=== PATIENT | male | born 1965 | race Caucasian/White ===

== ENCOUNTER 2017-11-04 16:21 | Emergency (ER) | payer OTHER, SELFPAY ==
[2017-11-04 16:22] VITALS: BP 146/97; PULSE 90; RESP 18; TEMP 36.7; O2SAT 98; BMI 29.0
[2017-11-04 16:40] VITALS: O2SAT 98
--- NOTE | 2017-11-04 16:44 | ED.DCSUM_ITS ---
- ER Visit Summary Date of Service: 11/04/17 Chief Complaint: [] Cough History of Present Illness: The patient is a 52 M [] complaining of 2 weeks of persistent cough resulting in sore abdominal muscles. Patient reports she was diagnosed with influenza and treated with steroids and Tessalon Perles by urgent care. Patient reports he is concerned of the persistent cough and intermittent fever and chills. Denies chest pain or shortness of breath. No other complaints at this time. Physical Examination: [] Afebrile, vital signs stable. 52-year-old male in no acute distress. Conversational. Cardiovascular exam is regular rate and rhythm. Lungs are clear to auscultation. Abdomen is soft and nontender. Test Results: [] Chest x-ray: Negative. Emergency Department Course and Treatment: [] Patient had normal vital signs and was conversational. His main concern was the persistent cough. He requested additional dextromethorafan syrup. He will be provided a prescription. He was encouraged to follow-up with his primary care physician. Treatment Plan: [] Follow-up with PCP. Disposition: [] Discharge, stable. Impression: [] URI This note was generated with [employer] dictation software. It may contain incorrect words, spelling, and punctuation that were not noted in review of the chart prior to signing ED Disposition - Plan for ED Patient: Chief Complaint: Cold Sx Referrals: Nereyda Coronel MD [Primary Care Provider] -
--- NOTE | 2017-11-04 17:00 | RAD_ITS ---
STUDY: X-RAY CHEST REASON FOR EXAM: Male, 52 years old. Cough and headache TECHNIQUE: PA and lateral views of the chest. COMPARISON: 11/08/2013 FINDINGS: The lungs are clear and expanded. There is no demonstrated pleural abnormality. Normal size heart. Normal mediastinum and jayro. Normal visualized pulmonary arteries. Normal visualized aortic arch and descending thoracic aorta. Normal visualized thoracic spine. Normal visualized ribs, clavicles, and shoulders. There is no demonstrated abnormality of the visualized soft tissue structures of the upper abdomen. RAD/Chest PA and Lateral IMPRESSION: Normal x-ray examination of the chest. Electronically Signed: Luis Armando Huang DO at 17:23 EST Tel , Service support ,
--- NOTE | 2017-11-04 17:46 | ED.DEP ---
ED Disposition - Plan for ED Patient: Disposition: Home or Assisted Living Chief Complaint: Cold Sx Instructions: ED Upper Resp Infec No Abx Tx Prescriptions: Dextromethorphn/Acetaminoph/Cp [Flu Hbp Tablet] 1 ea PO 4X/DAY PRN PRN #20 tab PRN Reason: Cough Referrals: Nereyda Coronel MD [Primary Care Provider] -
[2017-11-04 17:55] VITALS: BP 142/88; PULSE 98; RESP 18; O2SAT 98
--- NOTE | 2017-11-05 10:43 | ED.RN ---
Called RX to [facility] on [address], as requested by pt . Dextromethorphan Syrup 1 tsp TID PRN cough. #1 Bottle.
== END 2017-11-04 18:04 | disposition home or self-care (01) ==
PROVIDERS: Emergency Provider Emergency Medicine; Family Provider Internal Medicine; PCP Internal Medicine
DX: J06.9 Acute upper respiratory infection, unspecified (principal); K21.9 Gastro-esophageal reflux disease without esophagitis; F41.9 Anxiety disorder, unspecified; Z72.0 Tobacco use
CPT/HCPCS: 71046; 99283

== ENCOUNTER 2019-03-15 18:32 | Emergency (ER) | payer OTHER, SELFPAY ==
[2019-03-15 18:33] VITALS: BP 158/111; PULSE 88; RESP 16; TEMP 36.4; O2SAT 96; BMI 29.4
--- NOTE | 2019-03-15 18:51 | ED.DCSUM_ITS ---
- ER Visit Summary Date of Service: 03/15/19 Chief Complaint: Left hand laceration History of Present Illness: The patient is a 53 M who sustained a left hand laceration today. He was cutting with a razor knife when it cut into the ulnar portion of his left hand. He was able to control the bleeding. Last tetanus unknown. Denies any pain at this time. Physical Examination: Left hand exam has a 3 cm vertically oriented laceration on the ulnar portion. There is no bleeding. No foreign body. Test Results: None performed Emergency Department Course and Treatment: The wound was cleansed with alcohol. Dermabond was used to approximate the wound as it is not deep. His tetanus was updated. He will follow-up with Worker's Comp. Treatment Plan: [] Disposition: Discharge Impression: Left hand laceration, 3 cm Dermabond by ED physician This note was generated with [employer] dictation software. It may contain incorrect words, spelling, and punctuation that were not noted in review of the chart prior to signing ED Disposition - Plan for ED Patient: Referrals: Nereyda Coronel MD [Primary Care Provider] -
--- NOTE | 2019-03-15 18:52 | DCINST.ED_ITS ---
ED Disposition - Plan for ED Patient: Disposition: Home or Assisted Living Instructions: ED Laceration Ext Skin Glue Referrals: Nereyda Coronel MD [Primary Care Provider[facility] - [facility] [GROUP OF PHYSICIANS] -
[2019-03-15] MEDS: Diphth,Pertuss(Acell),Tet Vac 0.5 ML Vial IM (18:58)
[2019-03-15 19:47] VITALS: RESP 18
== END 2019-03-15 19:47 | disposition home or self-care (01) ==
LOC: ED 19:20
PROVIDERS: Emergency Provider Emergency Medicine; Family Provider Internal Medicine; PCP Internal Medicine
DX: S61.412A Laceration without foreign body of left hand, initial encounter (principal); W26.0XXA Contact with knife, initial encounter; Y93.9 Activity, unspecified; Y92.89 Other specified places as the place of occurrence of the external cause; Y99.8 Other external cause status; Z72.0 Tobacco use
CPT/HCPCS: 12002; 90471; 90715; 99282

== ENCOUNTER 2021-11-18 13:12 | Emergency (ER) | payer BC, SELFPAY ==
[2021-11-18 13:13] VITALS: BP 180/123; PULSE 97; RESP 16; TEMP 36.2; O2SAT 99; BMI 28.1
[2021-11-18] MEDS: 0.9% Normal Saline 1,000 ML 999 ML IV (14:20)
--- NOTE | 2021-11-18 14:21 | EX.ED.DYSGE1 ---
HPI <TRACI Ford - Last Filed: 11/18/21 16:37> History of Present Illness Chief Complaint: General Illness Narrative Narrative: 56-year-old male with PMH of HTN, HLD, GERD, anxiety and depression presents with nausea and vomiting. He states since October 22 he has had daily dry heaving or vomiting. Over the last week he has had significantly decreased p.o. intake. He also reports 3 episodes of nonbloody diarrhea a day but this is chronic. He has abdominal cramping but no severe pain. He attributed his symptoms to worsening anxiety so his primary care doctor increased his anxiety medications without improvement. He also drinks 2 tall boys a day with kathy and has had no change in his drinking pattern recently. Denies marijuana use. Previous abdominal surgeries include appendectomy. PFSH <TRACI Ford - Last Filed: 11/18/21 16:37> PFSH Home Medications multivitamin,[id number] [Therems-M] 1 tab PO DAILYCM #30 tablet 11/09/13 [Rx Last Taken 11/04/17] pantoprazole 20 mg PO BID #30 tablet 11/15/13 [Rx Last Taken 11/04/17] venlafaxine 75 mg PO DAILY 06/09/17 [History Last Taken 11/04/17] trazodone 50 mg PO QHS 03/15/19 [History Last Taken Unknown] ondansetron 4 mg PO Q8H PRN PRN #12 tab 11/18/21 [Rx Last Taken Unknown] Allergy/AdvReac Type Severity Reaction Status Date / Time No Known Allergies Allergy Verified 11/18/21 13:14 Social History Smoking Status: Never smoker ROS <TRACI Ford - Last Filed: 11/18/21 16:37> ROS ED ROS Narrative Constitutional: Negative for fever, chills, malaise. Eyes: Negative for visual change. ENT: Negative for sore throat, ear pain, rhinorrhea. CVS: Negative for palpitations, chest pain, syncope. Respiratory: Negative for shortness of breath, cough, orthopnea. GI: Positive for abdominal pain, nausea, vomiting, diarrhea. Negative for constipation, melena, hematochezia. : Negative for dysuria, hematuria or frequency. Neuro: Negative for headache, motor/sensory dysfunction. Skin: Negative for rash, abscess, or wound. Musc: Negative for joint pain, swelling, trauma. Heme: Negative for easy bruising, bleeding, lymphadenopathy. EXAM <TRACI Ford - Last Filed: 11/18/21 16:37> Physical Exam Narrative Exam Narrative: CONST: Patient sitting in no acute distress. EYES: Normal inspection. ENT: Normal inspection, dry mucous membranes. NECK: Normal inspection. RESP: No respiratory distress, CTAB. CVS: Regular rate and rhythm, no murmur, no gallop. ABD: Soft and nontender, no guarding or rebound, nondistended, no hepatosplenomegaly. Back: Normal inspection, no CVA tenderness. SKIN: Color normal, no rash, warm, dry, intact. EXTREMITIES: Normal appearance, no pedal edema. NEURO: Oriented x4. PSYCH: Normal affect. Const Vital Signs: 11/18/21 13:13 11/18/21 14:23 11/18/21 16:36 Temperature 97.2 F L Temperature Source Temporal Pulse Rate 97 84 Respiratory Rate 16 18 Respiratory Effort Normal Non-Labored Blood Pressure 180/123 H 148/99 H Blood Pressure Mean 142 Pulse Ox 99 Oxygen Delivery Method Room Air <Hayden Reed MD - Last Filed: 11/18/21 18:18> Physical Exam Const Vital Signs: 11/18/21 13:13 11/18/21 14:23 11/18/21 16:36 Temperature 97.2 F L Temperature Source Temporal Pulse Rate 97 84 Respiratory Rate 16 18 Respiratory Effort Normal Non-Labored Blood Pressure 180/123 H 148/99 H Blood Pressure Mean 142 Pulse Ox 99 Oxygen Delivery Method Room Air MDM <TRACI Ford - Last Filed: 11/18/21 16:37> [facility] Narrative Medical decision making narrative: Patient presents with few week history of nausea and vomiting. He appears well and nontoxic. Vital signs are within normal limits. On exam he has slightly dry mucous membranes. Heart is regular, lungs clear, and abdomen is soft, nontender, and nondistended with no hepatosplenomegaly. Labs show acute hepatitis with AST/ALT of 651/653 likely elevated from alcohol abuse. Total bilirubin is 1.5. Electrolytes, renal function, and lipase are all within normal limits. Urine has 5 ketones. His most recent blood work is from 2013 with liver enzymes in the 200-300s and total bilirubin was around 10 or higher. He has clinical improvement after IVF and zofran and is tolerating p.o. intake. He does not want to come in for alcohol detox. He had expressed that his anxiety has kept him in bed over the last month so he was evaluated by social work. He was offered alcohol detox resources and states he does not want to be admitted. He is established with his primary care who is referred him to a psychiatrist for anxiety management. At this time there is no indication for admission from his hepatitis and he is stable to follow-up outpatient for his anxiety as he has no suicidal or homicidal ideation. I discussed decreasing alcohol use and he was prescribed Zofran and discharged in stable condition. Diagnosis 1. Nausea and vomiting 2. Alcohol abuse 3. Acute hepatitis secondary to #2 4. Anxiety Lab Data Labs: Laboratory Results - last 24 hr 11/18/21 11/18/21 11/18/21 14:25 14:25 15:40 WBC 3.5 L RBC 4.45 L Hgb 15.6 Hct 43.1 MCV 96.9 H MCH 35.1 H MCHC 36.2 H RDW Std Deviation 45.7 H RDW Coeff of Nadeem 13.0 Plt Count 198 MPV 11.1 Immature Gran % (Auto) 0.300 Neut % (Auto) 62.8 Lymph % (Auto) 22.9 Forest % (Auto) 10.6 H Eos % (Auto) 1.4 Baso % (Auto) 2.0 H Absolute Neuts (auto) 2.2 Absolute Lymphs (auto) 0.80 L Nucleated RBC % 0 Sodium 139 Potassium 3.8 Chloride 103 Carbon Dioxide 28.0 Anion Gap 8 BUN 8 Creatinine 1.00 Estim Creat Clear Calc 75.28 Est GFR (MDRD) Af Amer 99 Est GFR (MDRD) Non-Af 82 BUN/Creatinine Ratio 8.0 L Glucose 125 H Calcium 8.0 L Total Bilirubin 1.50 H AST 651 H ALT 653 H Alkaline Phosphatase 214 H Total Protein 6.8 Albumin 3.8 Globulin 3.0 Albumin/Globulin Ratio 1.3 Lipase 166 Urine Color Yellow Urine Clarity Clear Urine pH 6.0 Ur Specific Hartwell 1.015 Urine Protein 30 H Urine Glucose (UA) Normal Urine Ketones 5 H Urine Occult Blood Negative Urine Nitrite Negative Urine Bilirubin Negative Urine Urobilinogen 4 H Ur Leukocyte Esterase Negative Urine RBC 0 SEEN Urine WBC 0 SEEN Ur Squamous Epith Cells 0 SEEN Urine Bacteria 0 SEEN Urine Mucus 0 SEEN <Hayden Reed MD - Last Filed: 11/18/21 18:18> MDM MDM Narrative Medical decision making narrative: ATTENDING NOTE: Dr. Reed: The patient was seen in conjunction with the PA-C/nurse practitioner. I performed a history and physical, and agree with the management of this patient. I agree with noted documentation and plan. I discussed the plan of care and final disposition with the physician associate/nurse practitioner. Generalized weakness, nausea and vomiting. Anxiety, did not want to get out of bed. Afebrile. Vital signs noted. Regular rate and rhythm. Abdomen soft and nontender. Check labs. IV fluids. Antiemetics. Patient discussed alcohol intake with case management/social work. Declines detox. Discharge. Lab Data Labs: Laboratory Results - last 24 hr 11/18/21 11/18/21 11/18/21 14:25 14:25 15:40 WBC 3.5 L RBC 4.45 L Hgb 15.6 Hct 43.1 MCV 96.9 H MCH 35.1 H MCHC 36.2 H RDW Std Deviation 45.7 H RDW Coeff of Nadeem 13.0 Plt Count 198 MPV 11.1 Immature Gran % (Auto) 0.300 Neut % (Auto) 62.8 Lymph % (Auto) 22.9 Forest % (Auto) 10.6 H Eos % (Auto) 1.4 Baso % (Auto) 2.0 H Absolute Neuts (auto) 2.2 Absolute Lymphs (auto) 0.80 L Nucleated RBC % 0 Sodium 139 Potassium 3.8 Chloride 103 Carbon Dioxide 28.0 Anion Gap 8 BUN 8 Creatinine 1.00 Estim Creat Clear Calc 75.28 Est GFR (MDRD) Af Amer 99 Est GFR (MDRD) Non-Af 82 BUN/Creatinine Ratio 8.0 L Glucose 125 H Calcium 8.0 L Total Bilirubin 1.50 H AST 651 H ALT 653 H Alkaline Phosphatase 214 H Total Protein 6.8 Albumin 3.8 Globulin 3.0 Albumin/Globulin Ratio 1.3 Lipase 166 Urine Color Yellow Urine Clarity Clear Urine pH 6.0 Ur Specific Hartwell 1.015 Urine Protein 30 H Urine Glucose (UA) Normal Urine Ketones 5 H Urine Occult Blood Negative Urine Nitrite Negative Urine Bilirubin Negative Urine Urobilinogen 4 H Ur Leukocyte Esterase Negative Urine RBC 0 SEEN Urine WBC 0 SEEN Ur Squamous Epith Cells 0 SEEN Urine Bacteria 0 SEEN Urine Mucus 0 SEEN Discharge Plan Triage Chief Complaint: General Illness ED Provider: Rafaela Monroe Dx/Rx/DC Orders Clinical Impression: Alcoholic hepatitis Instructions: Alcohol Addiction, Liver Problems Signs Ch Prescriptions: New ondansetron 4 mg tablet,disintegrating 4 mg PO Q8H PRN PRN (Reason: Nausea) Qty: 12 RF: 0 No Action multivitamin,[id number] [Therems-M] 1 TABLET tablet 1 tab PO DAILYCM Qty: 30 RF: 0 pantoprazole 20 MG tablet 20 mg PO BID Qty: 30 RF: 0 venlafaxine 37.5 MG capsule 75 mg PO DAILY RF: 0 trazodone 50 MG tablet 50 mg PO QHS RF: 0 Primary Care Provider: Nereyda Coronel Referrals: Nereyda Coronel MD [Primary Care Provider] - Friend,DO Jake [STAFF PHYSICIAN] - Activity Restrictions/Additional Instructions: Today you were seen for nausea and vomiting. Your electrolytes such as sodium and potassium look normal. Your liver enzymes are very high from your alcohol use. Social work provided detox resources and I recommend you decrease your alcohol use or go to detox or you are at risk for liver failure or cirrhosis. I prescribed zofran for nausea and vomiting. Please follow up with your PCP and I provided a referral to a GI doctor. Disposition Disposition: Home, Self Care Discharge Date/Time: 11/18/21 16:46
[2021-11-18 14:40] LABS: Absolute Neutrophil Count 2.2 X10^3/uL (2.0-7.7); Basophil# 0.07 X10^3/uL; Eosinophil# 0.05 X10^3/uL; Eosinophils% 1.4 % (0-5); Hematocrit 43.1 % (40-54); Hemoglobin 15.6 g/dL (13.0-16.5); Lymphocyte % 22.9 % (19-41); Mean Corp Hgb Conc 36.2 g/dL (32-36); Mean Corpuscular Hgb 35.1 pg (27.0-32.0); Mean Corpuscular Volume 96.9 fL (80-94); Mean Platelet Vol. 11.1 fl (6.2-12.0); Monocyte# 0.37 X10^3/uL; Monocyte% 10.6 % (0-10); NRBC Flagged by Analyzer 0 % (0-5); Neutrophil % 62.8 % (47-70); Platelet Count 198 K/mm3 (150-450); RBC Distribution Width SD 45.7 fl (35.1-43.9); Red Blood Count 4.45 M/mm3 (4.6-6.2); White Blood Count 3.5 K/mm3 (4.4-11.0)
[2021-11-18 14:55] LABS: ALB/GLOB Ratio 1.3 RATIO (0.9-2.4); AST(SGOT) 651 U/L (15-37); Alanine Aminotransfer ALT/SGPT 653 U/L (16-61); Albumin, Serum 3.8 g/dL (3.2-5.0); Alkaline Phosphatase 214 U/L (45-117); Anion Gap 8 (5-15); BUN 8 mg/dL (7-18); Chloride 103 mmol/L (98-107); EST Glomerular Filtration Rate 82 mL/min (>60); Est Glom Filt Rate - Afr Amer 99 mL/min (>60); Estimated Creatinine Clearance 75.28 ml/min; Glucose 125 mg/dL (74-106); Lipase 166 U/L (73-393); Potassium 3.8 mmol/L (3.5-5.1); Protein, Total 6.8 g/dL (6.4-8.2); Sodium Level 139 mmol/L (136-145)
[2021-11-18 15:48] LABS: Bacteria 0 SEEN /hpf (None Seen); Mucous, Urine 0 SEEN /hpf (<or=2+); Red Blood Cells-Urine 0 SEEN /hpf (0-5); Squamous Epithelial Cells - UA 0 SEEN /hpf (0-5); White Blood Cells 0 SEEN /hpf (0-5)
[2021-11-18 16:02] LABS: Color, Urine Yellow (Yellow); Glucose, Dipstick Normal (Normal); Ketone-Dipstick 5 mg/dl (Negative); Leukocyte Esterase-Dipstick Negative /ul (Negative); Nitrite-Dipstick Negative (Negative); Occult Blood-Urine Negative /ul (Negative); Protein-Dipstick 30 mg/dl (Negative); Specific Gravity, Urine 1.015 (1.002-1.030); Urine Bilirubin Dipstick Negative (Negative); Urine Clarity Clear (Clear); Urine Urobilinogen 4 mg/dl (Normal)
[2021-11-18 16:36] VITALS: BP 148/99; PULSE 84; RESP 18
--- NOTE | 2021-11-18 23:30 | CM.ED ---
GODFREY Note Referral Source: TAWNY CLEMONS Referral Reason: Patient has not been able to do his job for one month. Reports anxiety. Chief Complaint: SW met with patient and his , Melyssa. Patient gave verbal consent to talk to patient. Patient reports he has not been at his job since 10/22/21. Patient said that his anxiety is up and down. Patient said that he gets anxious. Patient was asked about SI and patient said no. reports that patient had made a vague statement awhile ago stating life would be better without him. SW asked patient about that statement and patient said I would be better off if I wasn't going through this shit. Patient's said that today is the 2nd time patient has been out of bed since October 22. Patient reports that he sleeps alot but it is not restful. reports that she got patient an salad on Monday and he ate half of the salad on Monday and the other half on Monday. Marital Status: Patient is to his , Melyssa Living Situation: In a house with his Support/ Resources: Patient said that his support is his Melyssa. Patient said that his family is in [place]. : Patient was in the [place]. Honorable discharge. NO VA benefits. Education and Employment: Patient graduated HS. No learning issues. Patient has worked at [employer] since 2005. He reports he plans to retire next year. Mental Health History and Treatment: Patient reports he went to a counselor as a child. Patient reports his PCP, Berna prescribes his psych medication. Patient said that he does telehealth with Phyllis for the [facility]. They have met with Phyllis, via telehealth, one time. They think that Phyllis is psychiatry at [facility]. Patient reports he is med compliant. Triggers and Stressors. Patient reports his one daughter doesn't want anything to do with him because of his drinking. Patient said that his children drive us nuts. Patient said that his one daughter, who is in long-term, was living with them and his reports that they were so scared to check on her in the morning they would take turns to check on her to see if she was alive or in the bedroom. 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 Coping Skills: Spending time with and watching movies Abuse: Denied Substance Abuse: Patient drinks 2 tall boys a day and adds Judith. said that she is unsure how much Judith he adds to his tall boys. said that he drinks more alcohol on weekend. Patient said that he does not do any other substance abuse and he said no.. I drive truck and I get drug tested. SW asked patient if he has any alcohol issues and patient said no and , Melyssa, shook her head stating patient has an issue. Risk to Self/Other Suicidality: Patient denied thoughts, plans or attempts. Patient said that the statement he made previously was in regard to the frustration he is feeling about his current condition but again denied SI. Homicidal: Patient denied Violence to self, others or things: Patient denied Mental Status Exam: x4 Memory: Good Appearance: Clean but slightly disheveled Mood: Anxious Thought Process: Appropriate. No evidence of AH/VH Communication Pattern: Responds to Questions General Intellectual Functioning: Average Insight: Poor Judgement: Poor Patient voices frustration about current medical state but denies SI/HI. He is future oriented as he voices that he plans to retire next year. SW discussed with patient the [facility]AMP program, which he declined. SW discussed [facility] and [facility]/I[facility]. indicated her boss goes to [facility] and speaks positively about the program. Patient said I just want a pill for my anxiety. SW discussed that alot of anxiety medications are addicting. Patient was giving resources pamphlet about [facility] and [facility] PHP/IOP. SW updated MD. SW provided resources to patient but this screenplay writer DOES not believe patient presents as needing inpatient psych as he is not voicing SI/HI. MD concurs. Patient would benefit from AOD treatment. Plan: Home with resources Salima GLASS
== END 2021-11-18 16:46 | disposition home or self-care (01) ==
PROVIDERS: Emergency Provider Physician Assistant; PCP Internal Medicine; Visit Provider Physician Assistant
DX: K70.10 Alcoholic hepatitis without ascites (principal); R11.2 Nausea with vomiting, unspecified; K52.9 Noninfective gastroenteritis and colitis, unspecified; I10 Essential (primary) hypertension; E78.5 Hyperlipidemia, unspecified; F10.10 Alcohol abuse, uncomplicated; K21.9 Gastro-esophageal reflux disease without esophagitis; F41.9 Anxiety disorder, unspecified; F32.A Depression, unspecified; Z79.899 Other long term (current) drug therapy
CPT/HCPCS: 80053; 81001; 83690; 85025; 99285

== ENCOUNTER 2022-05-10 11:10 | Emergency (ER) | payer BC, SELFPAY ==
[2022-05-10 11:11] VITALS: BP 205/138; PULSE 104; RESP 18; TEMP 37.1; O2SAT 97; BMI 31.6
--- NOTE | 2022-05-10 12:41 | NURSING ---
Able to pass cottrell without problems but do not have urine return. Noticed pt scrotum blue and hard. Dr. Goff made aware. This RN to leave cottrell at this time. Imaging ordered.
[2022-05-10] MEDS: Lidocaine Jelly 2% 20 ML Syringe (URO-JET) 1 APPLIC TOPICAL (12:43)
--- NOTE | 2022-05-10 12:46 | US_ITS ---
STUDY: SCROTUM ULTRASOUND REASON FOR EXAM: Male, 56 years old. Testicular pain TECHNIQUE: Ultrasound evaluation of the scrotum was performed with color Doppler and static gonzalez-scale imaging. COMPARISON: None. FINDINGS: RIGHT TESTICLE INTRATESTICULAR: There is a normal size of the right testicle. The right testicle measures 3.4 cm x 2.57 x 2.1 cm. There is a homogenous echotexture. There is normal arterial and normal venous vascularity. There is no demonstrated right testicular mass or cyst. EXTRATESTICULAR: The epididymis is normal in size. The epididymis head measures 0.9 cm x 1.1 cm x 0.8 cm. There is normal vascularity of the epididymis. There is no demonstrated epididymal cystic structure. There is no demonstrated hydrocele. There is no demonstrated varicocele. There is no demonstrated extratesticular mass or cyst. LEFT TESTICLE INTRATESTICULAR: There is a normal size of the left testicle. The left testicle measures 3.5 cm x 2.6 x 2.0 cm. There is a homogenous echotexture. There is normal arterial and normal venous vascularity. There is no demonstrated left testicular mass or cyst. EXTRATESTICULAR: The epididymis is normal in size. The epididymis head measures 0.8 cm x 1.1 cm x 0.7 cm. There is normal vascularity of the epididymis. There is a well-defined cystic structure within the epididymis, without internal echoes, consistent with an epididymal cyst. This measures 4 mm x 4 mm x 3 mm. There is no demonstrated hydrocele. There is no demonstrated varicocele. There is no demonstrated extratesticular mass or cyst. US/Testicular with Arterial Flow IMPRESSION: Small left epididymal cyst. Electronically Signed: Daniel Rodriguez MD at 14:22 EDT ,
[2022-05-10] MEDS: Morphine 4 MG/ML Syringe IV ×2 (13:04→16:35)
[2022-05-10 13:13] LABS: Absolute Lymphocyte Count 1.08 X10^3/uL (0.83-4.51); Absolute Neutrophil Count 11.3 X10^3/uL (2.0-7.7); Basophil# 0.14 X10^3/uL; Eosinophil# 0.02 X10^3/uL; Eosinophils% 0.1 % (0-5); Hematocrit 42.7 % (40-54); Hemoglobin 15.6 g/dL (13.0-16.5); Lymphocyte # 1.08 X10^3/ul (0.83-4.51); Lymphocyte % 7.9 % (19-41); Mean Corp Hgb Conc 36.5 g/dL (32-36); Mean Platelet Vol. 10.8 fl (6.2-12.0); Monocyte# 1.02 X10^3/uL; Monocyte% 7.4 % (0-10); NRBC Flagged by Analyzer 0 % (0-5); Neutrophil # 11.32 X10^3/uL (2.7-7.7); Neutrophil % 82.7 % (47-70); Platelet Count 392 K/mm3 (150-450); RBC Distribution Width CV 12.7 % (11.6-14.6); RBC Distribution Width SD 42.9 fl (35.1-43.9); Red Blood Count 4.59 M/mm3 (4.6-6.2); White Blood Count 13.7 K/mm3 (4.4-11.0)
[2022-05-10 13:25] LABS: AST(SGOT) 32 U/L (15-37); Alanine Aminotransfer ALT/SGPT 24 U/L (16-61); Albumin, Serum 4.3 g/dL (3.2-5.0); Alkaline Phosphatase 115 U/L (45-117); Anion Gap 12 (5-15); BUN 8 mg/dL (7-18); BUN/Creat Ratio 5.4 RATIO (10-20); Calcium,Total 9.7 mg/dL (8.5-10.1); Chloride 99 mmol/L (98-107); Creatinine, Serum 1.49 mg/dL (0.70-1.30); EST Glomerular Filtration Rate 51 mL/min (>60); Est Glom Filt Rate - Afr Amer 62 mL/min (>60); Estimated Creatinine Clearance 50.52 ml/min; Globulin 4.1 g/dL (2.2-4.2); Glucose 153 mg/dL (74-106); Potassium 3.7 mmol/L (3.5-5.1); Protein, Total 8.4 g/dL (6.4-8.2); Sodium Level 135 mmol/L (136-145)
--- NOTE | 2022-05-10 14:52 | CT_ITS ---
STUDY: CT ABDOMEN AND PELVIS WITHOUT CONTRAST REASON FOR EXAM: Male, 56 years old. Abdominal pain, TROUBLE URINATING RADIATION DOSAGE (If Supplied By Facility): CTDIvol = ( 14.22 ) mGy, DLP = ( 787.88 ) mGycm TECHNIQUE: Transaxial images were obtained from the dome of the diaphragm to the symphysis pubis without oral contrast, and without intravenous contrast. Sagittal and coronal images were reconstructed. Individualized dose optimization techniques were used for this CT. COMPARISON: Comparison is made with prior study dated 11/04/2013. FINDINGS: The visualized lung bases are unremarkable. The visualized portions of the heart are within normal limits. There is decreased attenuation of the liver consistent with steatosis. Normal gallbladder and extrahepatic biliary system. Normal spleen. Normal pancreas. Normal bilateral adrenal glands. Normal right kidney. Mild left hydronephrosis and hydroureter due to a 2.5 mm calculus at the left ureterovesical junction acetate and urinary bladder. Normal visualized stomach. Normal small intestine. There are scattered colonic diverticula consistent with diverticulosis. There are surgical clips in the region of the appendix consistent with a prior appendectomy. Normal abdominal aorta. Normal inferior vena cava. There is borderline retroperitoneal lymphadenopathy with enlarged nodes no greater than 10mm in the short axis diameter. Diffuse thickening of the urinary bladder. The urinary bladder is empty. A DE SANTIAGO catheter is seen within it. There are prostatic calcifications. Normal abdominal wall. There are mild degenerative changes of the visualized lumbar spine. 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 CT/Abdomen/Pelvis without Cont IMPRESSION: 2.5 mm calculus at the left ureterovesical junction as it enters the urinary bladder causing a mild degree of left hydronephrosis and left hydroureter. A DE SANTIAGO catheter seen within the empty bladder. There is diffuse wall thickening of the bladder. Electronically Signed: Daniel Rodriguez MD at 15:38 EDT ,
[2022-05-10 15:00] VITALS: BP 164/115; PULSE 100; RESP 16; O2SAT 100
[2022-05-10] MEDS: Labetalol (Prefilled) 20 MG/4 ML IV (15:07)
[2022-05-10 15:08] LABS: Bacteria 0 SEEN /hpf (None Seen); Mucous, Urine 0 SEEN /hpf (<or=2+)
[2022-05-10 15:13] LABS: Color, Urine Amber (Yellow); Glucose, Dipstick Normal (Normal); Ketone-Dipstick 5 mg/dl (Negative); Leukocyte Esterase-Dipstick 25 /ul (Negative); Nitrite-Dipstick Negative (Negative); Occult Blood-Urine 150 /ul (Negative); Protein-Dipstick 100 mg/dl (Negative); Urine Clarity Sl. Cloudy (Clear); Urine Urobilinogen 1 mg/dl (Normal)
[2022-05-10 15:14] LABS: Urine Bilirubin Dipstick 1 mg/dL (Negative)
[2022-05-10 15:17] LABS: Red Blood Cells-Urine 5-10 SEEN /hpf (0-5)
[2022-05-10 15:21] LABS: Squamous Epithelial Cells - UA 0-5 SEEN /hpf (0-5)
[2022-05-10 15:22] LABS: White Blood Cells 0-5 SEEN /hpf (0-5)
--- NOTE | 2022-05-10 16:14 | EDS_ITS ---
HPI History of Present Illness Chief Complaint: Complaint Informant: patient Onset/Context/Timing Onset: Today Context: Gradual Onset Timing: Continuous Quality: Pressure Location: Pelvic Worsened by: Nothing Relieved by: Sitting on toilet Narrative Narrative: Patient presents with urinary retention that began today. Patient states he tried to urinate this morning and was unable to. Patient states he drank some water and was still unable to pass any urine. Patient admits to some pressure in the pelvic area. Patient states it is better whenever he is able to sit on the toilet. Patient denies any fevers or chills. Patient does admit to some sweats. Patient admits to some nausea and vomiting. Patient states the pain radiates into his low back. [facility] Medical History (Updated 05/10/22 @ 16:[address] Jabari Goff DO) Bipolar 1 disorder, depressed Home Medications multivitamin,[id number] 27 mg-0.4 mg tablet (Therems-M) 1 tab PO DAILYCM ##30 11/09/13 [Rx Last Taken 11/04/17] pantoprazole 20 mg tablet,delayed release 20 mg PO BID ##30 11/15/13 [Rx Last Taken 11/04/17] venlafaxine 37.5 mg capsule,extended release 24 hr 75 mg PO DAILY 06/09/17 [History Last Taken 11/04/17] trazodone 50 mg tablet 50 mg PO QHS 03/15/19 [History Last Taken Unknown] ondansetron 4 mg disintegrating tablet 4 mg PO Q8H PRN PRN Nausea #12 tabs 11/18/21 [Rx Last Taken Unknown] hydrocodone-acetaminophen 5-325mg 5mg-325mg 1 tab PO Q6H PRN PRN Pain 3 days #10 TABLETS 05/10/22 [Rx Last Taken Unknown] Allergy/AdvReac Type Severity Reaction Status Date / Time No Known Allergies Allergy Verified 05/10/22 11:13 Surgical History (Updated 05/10/22 @ 16:[address] Jabari Goff DO) Hx of appendectomy Social History Smoking Status: Never smoker ROS ROS ED Constitutional Constitutional ED: Reports sweats; Denies chills or fever(s) Eyes Eyes: Denies blurry vision or change in vision ENT ENT ED: Denies rhinorrhea or sore throat Cardiovascular Cardiovascular: Denies chest pain or palpitations Respiratory/Chest Respiratory/Chest: Denies cough or dyspnea Gastrointestinal Gastrointestinal: Reports nausea and vomiting Genitourinary Genitourinary ED: Denies dysuria or hematuria Musculoskeletal Musculoskeletal: Reports back pain; Denies neck pain Integumentary Denies abscess or rash Neurologic Neurologic: Denies headache(s) or weakness Allergic/Immunologic Allergic/Immunologic ED: Denies mouth swelling or urticaria EXAM Physical Exam Const Vital Signs: 05/10/22 11:11 05/10/22 15:00 Temperature 98.7 F Temperature Source Temporal Pulse Rate 104 H 100 Respiratory Rate 18 16 Blood Pressure 205/138 H 164/115 H Blood Pressure Mean 160 131 Pulse Ox 97 100 Oxygen Delivery Method Room Air Room Air Positive well nourished and well developed General Appearance ED: well developed HEENT Reports moist mucous membranes Neck supple and no JVD Resp normal respiratory effort and clear to auscultation bilaterally Cardio regular rate, regular rhythm and no murmurs GI normal to inspection, nondistended, normoactive bowel sounds Palpation: soft and tender LLQ, RLQ and suprapubic Narrative: Circumcised male. Testicles are nontender. There are no masses palpated. There is no inguinal adenopathy. Extremity normal to inspection General Extremety ED: Negative for edema or tenderness General Extremity: Negative for edema Neuro oriented x3, CN's II-XII intact bilaterally and no sensory deficits noted Sensorium / Orientation: alert Motor Exam: strength 5/5 throughout Psych mental status grossly normal Skin no rashes or lesions noted MDM MDM MDM Narrative Medical decision making narrative: [place] catheter was placed. Patient had minimal urine output with this. Testicular ultrasound was obtained. There is no evidence of torsion or epididymitis. There is a small left epididymal cyst. This was interpreted by the radiologist and reviewed by myself. CBC shows a mild leukocytosis of 13.7. Comprehensive metabolic profile showed a slightly elevated creatinine of 1.49. Glucose was slightly elevated at 173. Urinalysis shows occult blood of 150. There were 5-10 red blood cells. There is no evidence of urinary tract infection. CT scan of the abdomen and pelvis was obtained. There is a 2.5 mm calculus at the ureterovesicular junction as it enters the bladder causing left hydronephrosis and hydroureter. This was interpreted by the radiologist and reviewed by myself. Patient was given a dose of morphine and labetalol here. Patient's blood pressure improved to 164/115. Patient was given repeat dose of morphine here. Patient was given a prescription for [place]. Patient was instructed to follow-up with his primary care physician in 5 to 7 days. Patient was also given referral for urology follow-up. Patient understood and was agreeable with the plan. All questions were answered. Lab Data Attestation: I reviewed the patient's lab results. Labs: Laboratory Results - last 24 hr 05/10/22 05/10/22 05/10/22 13:00 13:00 15:03 WBC 13.7 H RBC 4.59 L Hgb 15.6 Hct 42.7 MCV 93.0 MCH 34.0 H MCHC 36.5 H RDW Std Deviation 42.9 RDW Coeff of Nadeem 12.7 Plt Count 392 MPV 10.8 Immature Gran % (Auto) 0.900 Neut % (Auto) 82.7 H Lymph % (Auto) 7.9 L [place] % (Auto) 7.4 Eos % (Auto) 0.1 Baso % (Auto) 1.0 Absolute Neuts (auto) 11.3 H Absolute Lymphs (auto) 1.08 Nucleated RBC % 0 Sodium 135 L Potassium 3.7 Chloride 99 Carbon Dioxide 24.0 Anion Gap 12 BUN 8 Creatinine 1.49 H Estim Creat Clear Calc 50.52 Est GFR (MDRD) Af Amer 62 Est GFR (MDRD) Non-Af 51 L BUN/Creatinine Ratio 5.4 L Glucose 153 H Calcium 9.7 Total Bilirubin 0.60 AST 32 ALT 24 Alkaline Phosphatase 115 Total Protein 8.4 H Albumin 4.3 Globulin 4.1 Albumin/Globulin Ratio 1.0 Urine Color [place] Urine Clarity Sl. Cloudy Urine pH 6.0 Ur Specific [place] 1.030 Urine Protein 100 H Urine Glucose (UA) Normal Urine Ketones 5 H Urine Occult Blood 150 H Urine Nitrite Negative Urine Bilirubin 1 H Urine Urobilinogen 1 H Ur Leukocyte Esterase 25 H Urine RBC 5-10 SEEN Urine WBC 0-5 SEEN Ur Squamous Epith Cells 0-5 SEEN Urine Bacteria 0 SEEN Urine Mucus 0 SEEN Radiography Diagnostic Testing: Clinical Impression(s) from Imaging Studies Testicular Ultrasound 05/10/22 12:46 IMPRESSION: Small left epididymal cyst. Electronically Signed: Daniel Rodriguez MD at 14:22 EDT , Abdomen/Pelvis CT 05/10/22 14:52 IMPRESSION: 2.5 mm calculus at the left ureterovesical junction as it enters the urinary bladder causing a mild degree of left hydronephrosis and left hydroureter. A [place] SANTIAGO catheter seen within the empty bladder. There is diffuse wall thickening of the bladder. Electronically Signed: Daniel Rodriguez MD at 15:38 EDT , Discharge Plan Triage Chief Complaint: Complaint ED Provider: Jabari Goff Dx/Rx/DC Orders Clinical Impression: Calculus of distal left ureter, Left flank pain Instructions: ED Kidney Stone w/ Colic Prescriptions: New hydrocodone-acetaminophen [hydrocodone-acetaminophen] 5-325 mg tablet 1 tab PO Q6H PRN PRN (Reason: Pain) 3 Days Qty: 10 0RF No Action multivitamin,[id number] [Therems-M] 1 TABLET tablet 1 tab PO DAILYCM Qty: 30 0RF Label Comments: Multivitamin pantoprazole 20 MG tablet 20 mg PO BID Qty: 30 0RF Label Comments: GERD/acid reflux venlafaxine 37.5 MG capsule 75 mg PO DAILY Label Comments: TAKE 1 CAPSULE BY MOUTH ONCE DAILY. trazodone 50 MG tablet 50 mg PO QHS ondansetron 4 mg tablet,disintegrating 4 mg PO Q8H PRN PRN (Reason: Nausea) Qty: 12 0RF Primary Care Provider: Nereyda Coronel Referrals: Obie Burns MD [Med Staff - Active Staff] - 3-5 Days Nereyda Coronel MD [Primary Care Provider] - 5-7 Days Disposition Disposition: Home, Self Care
[2022-05-10 16:31] VITALS: BP 149/108; PULSE 75; RESP 16; O2SAT 99
== END 2022-05-10 16:51 | disposition home or self-care (01) ==
PROVIDERS: Emergency Provider Emergency Medicine; PCP Internal Medicine; Visit Provider Emergency Medicine
DX: N13.2 Hydronephrosis with renal and ureteral calculous obstruction (principal); F31.9 Bipolar disorder, unspecified; N13.4 Hydroureter; N50.3 Cyst of epididymis; R33.9 Retention of urine, unspecified; Z79.899 Other long term (current) drug therapy
CPT/HCPCS: 51702; 74176; 76870; 80053; 81001; 85025; 93976; 96374; 96375; 96376; 99284; A4216

== ENCOUNTER 2025-07-11 13:08 | Inpatient (IN) | payer MEDICARE, SELFPAY ==
[2025-07-11] VITALS (9 sets, daily range): BP systolic 112–142; BP diastolic 78–101; PULSE 76–88; RESP 15–20; TEMP 36.6–36.7; O2SAT 97–100; BMI 26.6; BMI 26.4
[2025-07-11 15:10] LABS: Hematocrit 26.6 % (40-54); Hemoglobin 9.3 g/dL (13.0-16.5); Immature Granulocytes Count 0.050 X10^3/uL (0.0-0.0); Mean Corp Hgb Conc 35.0 g/dL (32-36); Mean Corpuscular Volume 102.3 fL (80-94); Mean Platelet Vol. 11.2 fl (6.2-12.0); NRBC Flagged by Analyzer 0 % (0-5); Platelet Count 245 K/mm3 (150-450); RBC Distribution Width CV 16.8 % (11.6-14.6); RBC Distribution Width SD 63.4 fl (35.1-43.9); Red Blood Count 2.60 M/mm3 (4.6-6.2); White Blood Count 5.6 K/mm3 (4.4-11.0)
--- NOTE | 2025-07-11 15:15 | RAD_ITS ---
PROCEDURE: CHEST PA AND LATERAL 07/11/2025 REASON FOR EXAM: SOB TECHNIQUE: Procedure Code: RADCXR Modality: DX Procedure: CHEST PA AND LATERAL FINDINGS: Cardiac silhouette and pulmonary vasculature appear normal. No evidence of infiltrate, effusion, vascular congestion, mass, or nodule. No mediastinal or hilar abnormality. No other abnormality. RAD/Chest PA and Lateral IMPRESSION: Negative. Reading Location: [facility]
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
[2025-07-11 15:37] LABS: Anion Gap 14 (5-15); BUN 24 mg/dL (4-19); BUN/Creat Ratio 14.4 RATIO (10-20); Calcium,Total 9.2 mg/dL (7.6-11.0); Carbon Dioxide 24.0 mmol/L (21.0-32.0); Chloride 93 mmol/L (98-108); Estimated Creatinine Clearance 43.96 ml/min (50-250); Free T3 2.2 pg/mL (2.18-3.98); Glucose 129 mg/dL (70-99); Potassium 4.0 mmol/L (3.3-5.1)
[2025-07-11 16:08] LABS: Pro- Brain NATRIURETIC PEPTIDE 169 pg/mL (<=900); Troponin T High Sensitivity 13 ng/L (<=22)
[2025-07-11 17:07] LABS: Troponin T High Sens 2 HR 13 ng/L (<=22)
[2025-07-11 17:11] LABS: D-Dimer Quantitative (DVT/PE) < 0.27 FEU/ug/m (0.27-0.49)
--- NOTE | 2025-07-11 18:39 | ED.RN ---
walked pt to bathroom and in hallways. sats 96-98%. holding chest with pain. had to get chair in hallway. pale and SOB.
--- NOTE | 2025-07-11 18:48 | PCM.HP.STD ---
HPI - General General Date of Admission: 07/11/25 Date of Service: 07/11/25 Chief Complaint: Shortness of breath and chest pain with exertion HPI Narrative TERESITA MANE, is a 59 M who presented to [facility] ED on 07/11/2025 with shortness of breath and chest pain with exertion. Medical history is significant for alcohol abuse, bipolar 1 disorder, hypertension, GERD, asthma, marijuana use and tobacco use. Patient lives at home with his . He notes that for the past few months he has essentially not left the house because he becomes significantly short of breath with fairly minimal exertion. States he will become short of breath and have chest pain after walking only 10 to 20 feet. He typically only gets up to use the bathroom and then gets back in a chair or in bed. He notes that the shortness of breath has been going on for several months but has seemed to worsen particularly in the past few months. He drinks 1 bottle of liquor from Monday through Monday that his buys for him. He then typically has fairly minimal alcohol again until Monday. He will have worsening anxiety by or Monday but denies any overt tremors, delirium or withdrawal seizures. He does have a history of apparent delirium tremens secondary to alcohol withdrawal several years ago but notes he was drinking more heavily at that time. He smokes marijuana via a dab pen several times per day. He also uses chewing tobacco occasionally. He follows with a psychiatrist for his bipolar disorder and has been compliant with his venlafaxine and Seroquel but does not feel like these are helping much. In the ED he was normotensive, in normal sinus rhythm and stable on room air at rest. Chest x-ray unremarkable. CBC with hemoglobin 9.3 (prior baseline appears to be around 14-15 in 2021), MCV 102. BMP with sodium 131, chloride 93, creatinine 1.65, BUN 24. LFTs with T. bili 0.7, AST 100, ALT 68, alk phos 218. Troponins normal x 3. BNP normal. TSH normal. Patient was satting well on room air at rest. When nursing staff ambulated him, his oxygen saturations remained stable in the mid to high 90s but patient had severe shortness of breath and chest pain noted and nursing staff noted that patient became quite pale and needed to sit down after only going about 15 feet. Given this finding, hospitalist was contacted for admission. I saw the patient at bedside in the ED, was present. Patient was sitting back comfortably in bed, conversing normally, in no acute distress. He denies any chest pain or shortness of breath at rest. No other acute concerns currently. Will be admitted for further management. [facility] Medical History Bipolar 1 disorder, depressed Home Medications ?Medication ?Instructions ?Recorded ?Last Taken ?Type multivitamin,[id number] 27 1 tab PO DAILYCM ##30 11/09/13 11/04/17 Rx mg-0.4 mg tablet (Therems-M) albuterol sulfate 90 mcg/actuation 2 puff inhalation Q4H PRN PRN 07/11/25 Unknown History aerosol inhaler wheezing amlodipine 5 mg tablet 5 mg PO DAILY 07/11/25 Unknown History benzonatate 100 mg capsule 100 mg PO TID PRN PRN cough 07/11/25 Unknown History cholecalciferol (vitamin D3) 25 25 mcg PO DAILY 07/11/25 Unknown History mcg (1,000 unit) tablet hydrochlorothiazide 25 mg tablet 25 mg PO DAILY 07/11/25 Unknown History lisinopril 10 mg tablet 10 mg PO DAILY 07/11/25 Unknown History omeprazole 40 mg capsule,delayed 40 mg PO DAILY 07/11/25 Unknown History release quetiapine 100 mg tablet 100 mg PO QHS 07/11/25 Unknown History venlafaxine 150 mg 150 mg PO DAILY 07/11/25 Unknown History capsule,extended release 24 hr venlafaxine 75 mg capsule,extended 75 mg PO DAILY 07/11/25 Unknown History release 24 hr Allergy/AdvReac Type Severity Reaction Status Date / Time No Known Allergies Allergy Verified 07/11/25 13:09 Family History no significant family his Surgical History Hx of appendectomy Social History Smoking Status: Never smoker ROS Constitutional Constitutional: Denies chills, fatigue, fever(s) or weakness Cardiovascular Cardiovascular: Reports dyspnea on exertion; Denies chest pain, edema, lightheadedness or palpitations Respiratory/Chest Respiratory/Chest: Reports shortness of breath with exertion; Denies cough, productive cough, shortness of breath at rest or wheezing Gastrointestinal Gastrointestinal: Denies abdominal pain, nausea or vomiting Genitourinary Genitourinary: Denies dysuria Musculoskeletal Musculoskeletal: Denies arthralgias or myalgias Neurologic Neurologic: Denies dizziness, focal weakness or headache(s) Psychiatric Psychiatric: Reports anxiety and depression Vital Signs Vital Signs Vital Signs: 07/11/25 13:09 07/11/25 15:08 07/11/25 15:08 Temperature 97.8 F Temperature Source Oral Pulse Rate 88 Respiratory Rate 16 Respiratory Effort Blood Pressure 112/78 Blood Pressure Mean 89 Pulse Ox 100 99 Oxygen Delivery Method Room Air Room Air Room Air 07/11/25 15:08 07/11/25 15:28 07/11/25 15:28 Temperature Temperature Source Pulse Rate 82 Respiratory Rate Respiratory Effort Short of Breath Blood Pressure 134/88 H Blood Pressure Mean 103 Pulse Ox 99 Oxygen Delivery Method Room Air Room Air Room Air 07/11/25 17:00 Temperature Temperature Source Pulse Rate 80 Respiratory Rate 15 Respiratory Effort Blood Pressure 117/90 H Blood Pressure Mean 99 Pulse Ox 97 Oxygen Delivery Method Room Air Weight Weight: 77.111 kg Body Mass Index (BMI) 26.6 Physical Exam Const alert, oriented x3, no apparent distress and average body habitus Constitutional Narrative: Upper middle-age male, mildly fatigued appearing but otherwise sitting back comfortably in bed, conversing normally, in no acute distress. General Appearance: cooperative and comfortable HEENT normocephalic, head/scalp atraumatic, hearing grossly normal bilaterally, nasal mucous membranes and turbinates normal and moist oral mucous membranes Eyes PERRL, EOMs intact bilaterally and conjunctivae normal Neck full ROM Chest inspection of chest normal Resp normal respiratory effort, normal air movement, no use of accessory muscles and clear to auscultation bilaterally Cardio regular rate, regular rhythm, no murmurs and peripheral pulses 2+ throughout GI normal to inspection, nondistended, normoactive bowel sounds, soft to palpation, non-tender and non-distended Back/Spine normal ROM Extremity normal to inspection, full ROM and no pedal edema Skin no rashes or lesions noted Psych mental status grossly normal Mood & Affect: anxious Results Lab / Micro Data 07/11/25 14:55 07/11/25 14:55 Labs: Laboratory Results - last 24 hr 07/11/25 14:45: D-Dimer Quant (PE/DVT) < 0.27 L 07/11/25 14:55: WBC 5.6 07/11/25 14:55: WBC Cancelled, Corrected WBC Cancelled, RBC 2.60 L 07/11/25 14:55: RBC Cancelled, Hgb 9.3 L 07/11/25 14:55: Hgb Cancelled, Hct 26.6 L 07/11/25 14:55: Hct Cancelled, MCV 102.3 H 07/11/25 14:55: MCV Cancelled, MCH 35.8 H 07/11/25 14:55: MCH Cancelled, MCHC 35.0 07/11/25 14:55: MCHC Cancelled, RDW Std Deviation 63.4 H 07/11/25 14:55: RDW Std Deviation Cancelled, RDW Coeff of Nadeem 16.8 H 07/11/25 14:55: RDW Coeff of Nadeem Cancelled, Plt Count 245 07/11/25 14:55: Plt Count Cancelled, MPV 11.2 07/11/25 14:55: MPV Cancelled, Immature Gran % (Auto) 0.900 07/11/25 14:55: Immature Gran % (Auto) Cancelled, Neut % (Auto) 62.8 07/11/25 14:55: Neut % (Auto) Cancelled, Lymph % (Auto) 21.6 07/11/25 14:55: Lymph % (Auto) Cancelled, [place] % (Auto) 11.2 H 07/11/25 14:55: [place] % (Auto) Cancelled, Eos % (Auto) 1.2 07/11/25 14:55: Eos % (Auto) Cancelled, Baso % (Auto) 2.3 H 07/11/25 14:55: Baso % (Auto) Cancelled, Absolute Neuts (auto) 3.5 07/11/25 14:55: Absolute Neuts (auto) Cancelled, Absolute Lymphs (auto) 1.22 07/11/25 14:55: Absolute Lymphs (auto) Cancelled, Total Counted Cancelled, Neutrophils % (Manual) Cancelled, Band Neutrophils % Cancelled, Lymphocytes % (Manual) Cancelled, Monocytes % (Manual) Cancelled, Eosinophils % (Manual) Cancelled, Basophils % (Manual) Cancelled, Metamyelocytes % Cancelled, Myelocytes % Cancelled, Promyelocytes % Cancelled, Blast Cells % Cancelled, Plasma Cell % (Manual) Cancelled, Other Cells % Cancelled, Nucleated RBC % 0 07/11/25 14:55: Nucleated RBC % Cancelled, Nucleated RBCs/100 WBC Cancelled, Differential Comment Cancelled, Diff Path Review Cancelled, Hypersegmented Neuts Cancelled, Atypical Lymphocytes Cancelled, Reactive Lymphocytes Cancelled, Smudge Cells Cancelled, Toxic Granulation Cancelled, Toxic Vacuolation Cancelled, Dohle Bodies Cancelled, Ernie Rods Cancelled, Platelet Estimate Cancelled, Plt Morphology Comment Cancelled, RBC Morphology Cancelled 07/11/25 14:55: RBC Morphology Cancelled, Polychromasia Cancelled, Hypochromasia Cancelled, Basophilic Stippling Cancelled, Anisocytosis Cancelled, Microcytosis Cancelled, Macrocytosis Cancelled, Spherocytes Cancelled, Sickle Cells Cancelled, Target Cells Cancelled, Tear Drop Cells Cancelled, Ovalocytes Cancelled, Stomatocytes Cancelled, [place] Bodies Cancelled, [place] Cells Cancelled, Bite Cells Cancelled, Crenated Cell Cancelled, Acanthocytes (Spur) Cancelled, Rouleaux Cancelled, Schistocytes Cancelled, Sodium 131 L 07/11/25 14:55: Sodium Cancelled, Potassium 4.0 07/11/25 14:55: Potassium Cancelled, Chloride 93 L 07/11/25 14:55: Chloride Cancelled, Carbon Dioxide 24.0 07/11/25 14:55: Carbon Dioxide Cancelled, Anion Gap 14 07/11/25 14:55: Anion Gap Cancelled, BUN 24 H 07/11/25 14:55: BUN Cancelled, Creatinine 1.65 H 07/11/25 14:55: Creatinine Cancelled, Estim Creat Clear Calc 43.96 L, Est GFR (MDRD) Non-Af 47 L 07/11/25 14:55: Est GFR (MDRD) Non-Af Cancelled, BUN/Creatinine Ratio 14.4 07/11/25 14:55: BUN/Creatinine Ratio Cancelled, Glucose 129 H 07/11/25 14:55: Glucose Cancelled, Calcium 9.2 07/11/25 14:55: Calcium Cancelled, Troponin T High Sens 13, NT pro BNP II 169, TSH 0.918, Free T4 1.20, Free T3 pg/dL 2.2 07/11/25 16:43: Troponin T Hi Sens 2 Hr 13 Imaging Radiology Impression Chest X-Ray 07/11/25 15:15 IMPRESSION: Negative. Reading [facility] Assessment & Plan Assessment/Plan (1) Chest pain: PLAN: Plan Patient is a 59-year-old male who presented to [facility] ED on 07/11/2025 with shortness of breath and chest pain with exertion. 1. Exertional chest pain and dyspnea ? Admit under observation status to PCU. Unclear etiology at this time. ED workup negative including chest x-ray normal, troponins negative x 3, EKG with normal sinus rhythm and no ST changes. Normotensive and stable on room air at rest. However, patient had significant chest pain and dyspnea with fairly minimal exertion in the ED. Anemia as below may be contributing but cannot rule out primary cardiac etiology. Echocardiogram and nuclear stress testing ordered. N.p.o. at midnight. A1c 5.7% and TSH normal. A.m. lipid profile ordered. 2. Macrocytic anemia, history of GERD with peptic ulcer disease ? Hemoglobin 9.3, MCV 102 on admit. Baseline unclear but last hemoglobin was around 15 in 2021. Patient does report history of GERD with peptic ulcer disease over 10 years ago. On chart review, his hemoglobin was 10-11 back in 2013. Patient denies any dark or bloody stools. Ferritin very elevated at 1967 consistent with anemia of chronic disease; suspect alcoholic hepatitis is a strong contributor to this. B12 and folate levels pending. Follow-up a.m. CBC. Continue home PPI. 3. Elevated creatinine ? Creatinine 1.65 on admit, BUN 24. Baseline unclear, last creatinine in 2021 was 1.4. Will give 1 L of IV fluids overnight given mild hyponatremia as below. Follow-up a.m. BMP and monitor urine output. 4. Mild hyponatremia ? Sodium 131, chloride 93 on admit. Suspect secondary to mild degree of dehydration. Given IV fluids as above, follow-up a.m. sodium level. 5. Elevated transaminases ? AST 100, ALT 68, alk phos 218 on admit. Suspect secondary to alcoholic hepatitis. No abdominal pain noted, no need for abdominal imaging at this time. Follow-up a.m. labs. 6. Alcohol abuse ? Patient reports drinking 1/5 of vodka weekly. He will drink this from Monday to Monday then have minimal alcohol again until the next Monday. Patient does report significant anxiety by or Monday but denies any tremors, delirium or hallucinations. Reports history of delirium tremens secondary to alcohol withdrawal in the hospital over 10 years ago. Last alcoholic drink was reportedly on Thursday 07/12. CIWA protocol with as needed Ativan ordered. Other as needed medications ordered per alcohol withdrawal order set. Monitor closely. 7. Hypertension ? Normotensive in the ED. Continue home amlodipine. Will hold home lisinopril and hydrochlorothiazide for now given elevated creatinine as above. 8. Bipolar disorder ? Follows with outpatient psychiatry. Continue home venlafaxine and Seroquel. DVT prophylaxis: Lovenox CODE STATUS: Full code, verified Expected disposition: Home, TBD Total clinical time spent by myself addressing the patient's medical issues, reviewing all the data, and collaborating with patient's care team: 83 minutes. Charges/Coding Visit Charges Inpatient E&M: 10276 Init Hosp L3
--- NOTE | 2025-07-11 18:52 | ECHOD_ITS ---
Reason For Study Reason For Study: Chest Pain Procedure This was a 2D Doppler, Color Flow transthoracic echocardiogram. Exam performed portable in patient room. Left Ventricle Normal LV size. Mild concentric left ventricular hypertrophy. The left ventricular ejection fraction is 65 %. Stage 1 diastolic dysfunction. Right Ventricle Normal right ventricle. Atria The left and right atria are normal. Mitral Valve Trivial mitral valve insufficiency. Tricuspid Valve Trivial tricuspid valve insufficiency. Normal pulmonary artery pressure. Aortic Valve Trisinus/trileaflet aortic valve. Pulmonic Valve The pulmonic valve is not well visualized. Great Vessels Normal sized aortic root. Pericardium/Pleural Trivial pericardial effusion. MMode/2D Measurements & Calculations LVIDd: 4.3 cm IVSd: 1.2 cm Ao root diam: 3.1 cm LVIDs: 2.4 cm LVPWd: 1.0 cm RVDd: 3.9 cm FS: 44.2 % LAV(MOD-bp): 46.5 ml LVAd ap4: 23.5 cm2 SV(MOD-sp4): 45.5 ml LAV(MOD-bp) Indexed: 24.7 ml/m2 LVLd ap4: 6.9 cm SI(MOD-sp4): 24.2 ml/m2 LAV(MOD-sp2): 34.9 ml EDV(MOD-sp4): 68.2 ml LAV(MOD-sp4): 49.6 ml EDV(sp4-el): 68.0 ml LVAs ap4: 12.8 cm2 LVLs ap4: 6.1 cm ESV(MOD-sp4): 22.7 ml ESV(sp4-el): 22.7 ml EF(MOD-sp4): 66.7 % EF(sp4-el): 66.6 % SV(sp4-el): 45.3 ml LA A4 area: 18.5 cm2 LA dimension(2D): 3.8 cm RA A4 area: 14.5 cm2 TAPSE: 2.4 cm Time Measurements MV dec time: 0.20 sec Doppler Measurements & Calculations MV E max lalo: 69.5 cm/sec Lat Peak E' Lalo: 11.2 cm/sec Med Peak E' Lalo: 8.1 cm/sec MV A max lalo: 72.8 cm/sec E/E' lat: 6.2 E/E' med: 8.5 MV E/A: 0.95 MV V2 max: 95.8 cm/sec MV P1/2t max lalo: 75.9 cm/sec Ao V2 max: 113.7 cm/sec MV max P.7 mmHg MV P1/2t: 63.4 msec Ao max P.2 mmHg MV V2 mean: 50.2 cm/sec Ao V2 mean: 75.9 cm/sec MV mean P.2 mmHg MV dec slope: 350.7 cm/sec2 Ao mean P.8 mmHg MV V2 VTI: 26.0 cm MVA(P1/2t): 3.5 cm2 Ao V2 VTI: 23.5 cm AV (velocity ratio): 0.87 LV V1 max: 89.7 cm/sec TR max lalo: 218.9 cm/sec LV V1 max P.2 mmHg TR max P.2 mmHg LV V1 mean P.7 mmHg LV V1 mean: 60.5 cm/sec LV V1 VTI: 20.4 cm ECHO/Echo Complete Interpretation Summary Mild concentric left ventricular hypertrophy. The left ventricular ejection fraction is 65 %. Stage 1 diastolic dysfunction. Ordering Physician: Luis Rivera Performed By: Anatoly Solo RCS
[2025-07-11 20:01] LABS: Troponin T High Sens 4 HR 12 ng/L (<=22)
[2025-07-11 20:33] LABS: AST(SGOT) 100 U/L (<=37); Alanine Aminotransfer ALT/SGPT 68 U/L (<=46); Albumin, Serum 3.6 g/dL (3.4-4.8); Alkaline Phosphatase 218 U/L (40-129); Bilirubin, Direct 0.35 mg/dL (0.00-0.30); Globulin 2.4 g/dL (2.2-4.2)
[2025-07-11 20:53] LABS: Ferritin 1967 ng/mL (37-417); Iron 190 ug/dL (65-175); Iron Binding Capacity,Unsat < 17 ug/dL (228-428)
[2025-07-11] MEDS: MELATONIN 3 MG TABLET PO (21:38)
[2025-07-11 22:06] LABS: Vitamin B12 462 pg/mL (180-914)
[2025-07-11] MEDS: 0.9% Normal Saline (1000mL) 1,000 ML 150 ML IV (22:57)
[2025-07-12] VITALS (8 sets, daily range): BP systolic 105–128; BP diastolic 63–95; PULSE 72–98; RESP 16–18; TEMP 36.3–36.8; O2SAT 94–99
--- NOTE | 2025-07-12 01:04 | NURSING ---
Pt is NPO
[2025-07-12 06:25] LABS: Hematocrit 22.7 % (40-54); Hemoglobin 7.8 g/dL (13.0-16.5); Mean Corp Hgb Conc 34.4 g/dL (32-36); Mean Corpuscular Volume 101.8 fL (80-94); Mean Platelet Vol. 10.9 fl (6.2-12.0); Platelet Count 192 K/mm3 (150-450); RBC Distribution Width CV 16.7 % (11.6-14.6); RBC Distribution Width SD 61.8 fl (35.1-43.9); Red Blood Count 2.23 M/mm3 (4.6-6.2); White Blood Count 3.9 K/mm3 (4.4-11.0)
[2025-07-12 06:37] LABS: Prothrombin Time (Protime)PT. 13.9 SECONDS (11.7-14.9)
[2025-07-12 06:51] LABS: Anion Gap 11 (5-15); BUN 20 mg/dL (4-19); BUN/Creat Ratio 13.2 RATIO (10-20); Calcium,Total 8.6 mg/dL (7.6-11.0); Carbon Dioxide 23.9 mmol/L (21.0-32.0); Chloride 101 mmol/L (98-108); Cholesterol 158 mg/dL (<=200); Estimated Creatinine Clearance 47.71 ml/min (50-250); Glucose 99 mg/dL (70-99); Low Density Lipoprotein Calc. 76 mg/dL; Potassium 3.7 mmol/L (3.3-5.1); Triglycerides 193 mg/dL; Very Low Density Lipoprotein 39 mg/dL (5-40); cholesterol:hdl ratio screen 3.64
--- NOTE | 2025-07-12 07:13 | PN.HOSP_ITS ---
Reason for Visit Chief Complaint: Shortness of breath and chest pain with exertion Objective Data Objective Data Vital Signs: Vital Signs Temp Pulse Resp BP Pulse Ox O2 Del Method 97.7 F L 72 16 105/63 98 Room Air 07/12/25 02:00 07/12/25 02:00 07/12/25 02:00 07/12/25 02:00 07/12/25 02:00 07/12/25 02:00 Oxygen Delivery Method Room Air Weight: 168 lb 6.931 oz Body Mass Index (BMI) 26.4 Intake & Output: Intake and Output for Last 24 Hours 07/10/25 07/11/25 07/12/25 23:59 23:59 23:59 Intake Total 1300 / 1300 Balance 1300 / 1300 Lab / Micro Data 07/12/25 10:00 07/12/25 05:58 Labs: Laboratory Results - last 24 hr 07/11/25 14:45: D-Dimer Quant (PE/DVT) < 0.27 L 07/11/25 14:55: WBC 5.6 07/11/25 14:55: WBC Cancelled, Corrected WBC Cancelled, RBC 2.60 L 07/11/25 14:55: RBC Cancelled, Hgb 9.3 L 07/11/25 14:55: Hgb Cancelled, Hct 26.6 L 07/11/25 14:55: Hct Cancelled, MCV 102.3 H 07/11/25 14:55: MCV Cancelled, MCH 35.8 H 07/11/25 14:55: MCH Cancelled, MCHC 35.0 07/11/25 14:55: MCHC Cancelled, RDW Std Deviation 63.4 H 07/11/25 14:55: RDW Std Deviation Cancelled, RDW Coeff of Nadeem 16.8 H 07/11/25 14:55: RDW Coeff of Nadeem Cancelled, Plt Count 245 07/11/25 14:55: Plt Count Cancelled, MPV 11.2 07/11/25 14:55: MPV Cancelled, Immature Gran % (Auto) 0.900 07/11/25 14:55: Immature Gran % (Auto) Cancelled, Neut % (Auto) 62.8 07/11/25 14:55: Neut % (Auto) Cancelled, Lymph % (Auto) 21.6 07/11/25 14:55: Lymph % (Auto) Cancelled, Barnes % (Auto) 11.2 H 07/11/25 14:55: Barnes % (Auto) Cancelled, Eos % (Auto) 1.2 07/11/25 14:55: Eos % (Auto) Cancelled, Baso % (Auto) 2.3 H 07/11/25 14:55: Baso % (Auto) Cancelled, Absolute Neuts (auto) 3.5 07/11/25 14:55: Absolute Neuts (auto) Cancelled, Absolute Lymphs (auto) 1.22 Sodium 131 L 07/11/25 14:55: Sodium Cancelled, Potassium 4.0 07/11/25 14:55: Potassium Cancelled, Chloride 93 L 07/11/25 14:55: Chloride Cancelled, Carbon Dioxide 24.0 07/11/25 14:55: Carbon Dioxide Cancelled, Anion Gap 14 07/11/25 14:55: Anion Gap Cancelled, BUN 24 H 07/11/25 14:55: BUN Cancelled, Creatinine 1.65 H 07/11/25 14:55: Creatinine Cancelled, Estim Creat Clear Calc 43.96 L, Est GFR (MDRD) Non-Af 47 L 07/11/25 14:55: Est GFR (MDRD) Non-Af Cancelled, BUN/Creatinine Ratio 14.4 07/11/25 14:55: BUN/Creatinine Ratio Cancelled, Glucose 129 H 07/11/25 14:55: Glucose Cancelled, Hemoglobin A1c 5.7, Calcium 9.2 07/11/25 14:55: Calcium Cancelled, Troponin T High Sens 13, NT pro BNP II 169, TSH 0.918, Free T4 1.20, Free T3 pg/dL 2.2 07/11/25 16:43: Troponin T Hi Sens 2 Hr 13 07/11/25 19:10: Iron 190 H, TIBC Not Reportable, Iron Saturation Not Reportable, Unsaturated IBC < 17 L, Ferritin 1967 H, Total Bilirubin 0.73, Direct Bilirubin 0.35 H, AST 100 H, ALT 68 H, Alkaline Phosphatase 218 H, Troponin T Hi Sens 4Hr 12, Total Protein 6.0, Albumin 3.6, Globulin 2.4 07/11/25 20:15: Vitamin B12 462 07/12/25 05:58: WBC 3.9 L, RBC 2.23 L, Hgb 7.8 L, Hct 22.7 L, MCV 101.8 H, MCH 35.0 H, MCHC 34.4, RDW Std Deviation 61.8 H, RDW Coeff of Nadeem 16.7 H, Plt Count 192, MPV 10.9, PT 13.9, INR 1.1, Sodium 136, Potassium 3.7, Chloride 101, Carbon Dioxide 23.9, Anion Gap 11, BUN 20 H, Creatinine 1.52 H, Estim Creat Clear Calc 47.71 L, Est GFR (MDRD) Non-Af 52 L, BUN/Creatinine Ratio 13.2, Glucose 99, Calcium 8.6, Triglycerides 193, Cholesterol 158, LDL Cholesterol, Calc 76, VLDL Cholesterol 39, HDL Cholesterol 43, Cholesterol/HDL Ratio 3.64 Radiography Diagnostic Testing: Radiology Impression Chest X-Ray 07/11/25 15:15 IMPRESSION: Negative. Reading [facility] Physical Exam Narrative Patient has history of chronic alcohol use. Drinks 1 L of vodka in [address] week[address] D[address] heavy from Monday to Monday. Has been drinking for a long time since early age. He used to smoke cigarettes and teenager and then started smoking marijuana and chews tobacco. Admitted with dyspnea on minimal exertion and chest tightness mainly anterior and posterior side without radiation. Denies leg edema or abdominal swelling. Physical exam General: Alert, Oriented x3, Cooperative HEENT: Atraumatic, PERRLA, EOMI, Normocephalic. Oral: No Gingival or Mucosal Lesions/ Ulcerations Neck: Supple, No JVD, Negative Carotid Bruits Chest wall/Lungs: Air entry diminished in bilateral lung bases. No crepitation/rhonchi Cardiovascular: Regular rate and rhythm, Normal S1,S2, No M/G/R Abdomen: Bowel Sounds Present, Soft, Non Tender, Non-Distended. No hepatosplenomegaly : No dysuria. No renal angle tenderness. No suprapubic tenderness. Extremities: No edema, Capillary Refill Less than 3 Seconds Skin: No rashes, No breakdown Musculoskeletal: No Tenderness to Palpation of Joints or Extremities Neurological: Cranial nerves II-XII grossly intact, DTR 2+/4. No acute focal neurological deficit. Psych/Mental Status: Normal Affect, Appropriate. Assessment & Plan Assessment/Plan (1) Chest pain: PLAN: Plan Patient is a 59-year-old male who presented to [facility] ED on 07/11/2025 with shortness of breath and chest pain with exertion. The patient had significant chest pain and dyspnea with fairly minimal exertion in the ED. 1. Exertional chest pain and dyspnea ? Patient was admitted under observation status to PCU. Unclear etiology at this time. ED workup negative including chest x-ray normal, troponins negative x 3, EKG with normal sinus rhythm and no ST changes. Heart rate and blood pressure normal. No hypoxia or tachypnea. Anemia as below may be contributing but cannot rule out primary cardiac etiology. Echocardiogram and nuclear stress testing ordered. N.p.o. at midnight. A1c 5.7% and TSH normal. A.m. lipid profile 07/12: Stress test was postponed because of severe anemia 7.8 g%. Repeat H&H 8.1. Stool for occult blood ordered. Lipid profile shows LDL 76, total cholesterol 158 TG 193. TSH 0.918, free T4 and free T3 normal. A1c 5.7%. 2D echo reported EF 65%, stage I diastolic dysfunction, mild concentric LVH. Normal RV. 2. Macrocytic anemia, history of GERD with peptic ulcer disease ? Hemoglobin 9.3, MCV 102 on admit. Baseline unclear but last hemoglobin was around 15 in 2021. Patient does report history of GERD with peptic ulcer disease over 10 years ago. On chart review, his hemoglobin was 10-11 back in 2013. Patient denies any dark or bloody stools. Ferritin very elevated at 1967 consistent with anemia of chronic disease; suspect alcoholic hepatitis is a strong contributor to this. 07/12: B12 462. Iron profile shows ferritin very high 1966 probably acute phase reactant, serum iron high TIBC iron saturation not reportable but unsaturated IBC low therefore seems unlikely iron deficiency anemia But probably inflammatory anemia from chronic alcohol use. Hemoglobin dropped from 9.3-7.8 latest 8.1. No recent hemoglobin but last was about 15.6 in May 2022 and 10.1-11 in 2013. Patient has severe chronic anemia but does not meet criteria for acute anemia. Continue home PPI 3. Elevated creatinine most likely CKD stage IIIa ? Creatinine 1.65 on admit, BUN 24. Baseline unclear, last creatinine in 2021 was 1.4. Will give 1 L of IV fluids overnight given mild hyponatremia as below. BUN/creatinine 20/1.52. BUN/creatinine ratio 13.2. Slight improvement. Seems most likely chronic kidney disease, CKD stage III A. Continue 1 more liter of IV fluid. Hyponatremia improved. 4. Mild hyponatremia ? Sodium 131, chloride 93 on admit. Suspect secondary to mild degree of dehydration. 07/12 serum sodium improved to 136. 5. Elevated transaminases most likely chronic alcoholic hepatitis 07/12:? AST 100, ALT 68, alk phos 218 on admit. No abdominal pain. On exam no ascites or splenomegaly. Repeat liver chemistry ordered. RUQ sonogram including spleen ordered. 6. Chronic alcohol use and dependence: ? Patient reports he drinks 1 L of vodka in 1 week. He will drink this from Monday to Monday then have minimal alcohol again until the next Monday. Patient does report significant anxiety by or Monday but denies any tremors, delirium or hallucinations. Reports history of delirium tremens secondary to alcohol withdrawal in the hospital over 10 years ago. Last alcoholic drink was reportedly on Thursday 07/12. CIWA protocol with as needed Ativan ordered. Other as needed medications ordered per alcohol withdrawal order set. Monitor closely. 7. Hypertension ? Normotensive in the ED. Continue home amlodipine. Will hold home lisinopril and hydrochlorothiazide for now given elevated creatinine as above. 8. Bipolar disorder ? Follows with outpatient psychiatry. Continue home venlafaxine and Seroquel. DVT prophylaxis: Lovenox CODE STATUS: Full code, verified Laboratory Results 07/11/25 14:45: D-Dimer Quant (PE/DVT) < 0.27 L 07/11/25 14:55: WBC 5.6 07/11/25 14:55: WBC Cancelled, Corrected WBC Cancelled, RBC 2.60 L 07/11/25 14:55: RBC Cancelled, Hgb 9.3 L 07/11/25 14:55: Hgb Cancelled, Hct 26.6 L 07/11/25 14:55: Hct Cancelled, MCV 102.3 H 07/11/25 14:55: MCV Cancelled, MCH 35.8 H 07/11/25 14:55: MCH Cancelled, MCHC 35.0 07/11/25 14:55: MCHC Cancelled, RDW Std Deviation 63.4 H 07/11/25 14:55: RDW Std Deviation Cancelled, RDW Coeff of Nadeem 16.8 H 07/11/25 14:55: RDW Coeff of Nadeem Cancelled, Plt Count 245 07/11/25 14:55: Plt Count Cancelled, MPV 11.2 07/11/25 14:55: MPV Cancelled, Immature Gran % (Auto) 0.900 07/11/25 14:55: Immature Gran % (Auto) Cancelled, Neut % (Auto) 62.8 07/11/25 14:55: Neut % (Auto) Cancelled, Lymph % (Auto) 21.6 07/11/25 14:55: Lymph % (Auto) Cancelled, Barnes % (Auto) 11.2 H 07/11/25 14:55: Barnes % (Auto) Cancelled, Eos % (Auto) 1.2 07/11/25 14:55: Eos % (Auto) Cancelled, Baso % (Auto) 2.3 H 07/11/25 14:55: Baso % (Auto) Cancelled, Absolute Neuts (auto) 3.5 07/11/25 14:55: Absolute Neuts (auto) Cancelled, Absolute Lymphs (auto) 1.22 Sodium 131 L 07/11/25 14:55: Sodium Cancelled, Potassium 4.0 07/11/25 14:55: Potassium Cancelled, Chloride 93 L 07/11/25 14:55: Chloride Cancelled, Carbon Dioxide 24.0 07/11/25 14:55: Carbon Dioxide Cancelled, Anion Gap 14 07/11/25 14:55: Anion Gap Cancelled, BUN 24 H 07/11/25 14:55: BUN Cancelled, Creatinine 1.65 H 07/11/25 14:55: Creatinine Cancelled, Estim Creat Clear Calc 43.96 L, Est GFR (MDRD) Non-Af 47 L 07/11/25 14:55: Est GFR (MDRD) Non-Af Cancelled, BUN/Creatinine Ratio 14.4 07/11/25 14:55: BUN/Creatinine Ratio Cancelled, Glucose 129 H 07/11/25 14:55:Hemoglobin A1c 5.7, Calcium 9.2 07/11/25 14:55: Calcium Cancelled, Troponin T High Sens 13, NT pro BNP II 169, RBC Folate Hemolysate Pending, RBC Folate Pending, Hematocrit Pending, TSH 0.918, Free T4 1.20, Free T3 pg/dL 2.2 07/11/25 16:43: Troponin T Hi Sens 2 Hr 13 07/11/25 19:10: Iron 190 H, TIBC Not Reportable, Iron Saturation Not Reportable, Unsaturated IBC < 17 L, Ferritin 1967 H, Total Bilirubin 0.73, Direct Bilirubin 0.35 H, AST 100 H, ALT 68 H, Alkaline Phosphatase 218 H, Troponin T Hi Sens 4Hr 12, Total Protein 6.0, Albumin 3.6, Globulin 2.4 07/11/25 20:15: Vitamin B12 462 07/12/25 05:58: WBC 3.9 L, RBC 2.23 L, Hgb 7.8 L, Hct 22.7 L, MCV 101.8 H, MCH 35.0 H, MCHC 34.4, RDW Std Deviation 61.8 H, RDW Coeff of Nadeem 16.7 H, Plt Count 192, MPV 10.9, PT 13.9, INR 1.1, Sodium 136, Potassium 3.7, Chloride 101, Carbon Dioxide 23.9, Anion Gap 11, BUN 20 H, Creatinine 1.52 H, Estim Creat Clear Calc 47.71 L, Est GFR (MDRD) Non-Af 52 L, BUN/Creatinine Ratio 13.2, Glucose 99, Calcium 8.6, Triglycerides 193, Cholesterol 158, LDL Cholesterol, Calc 76, VLDL Cholesterol 39, HDL Cholesterol 43, Cholesterol/HDL Ratio 3.64 Charges/Coding Visit Charges Inpatient E&M: 62822 Subs Hosp L2
--- NOTE | 2025-07-12 07:18 | US_ITS ---
PROCEDURE: ABDOMEN LIMITED 07/12/2025 REASON FOR EXAM: ALCHOLIC HEPATITIS, R/O ASCITES TECHNIQUE: Procedure Code: USABDL Modality: US Procedure: ABDOMEN LIMITED COMPARISON: None FINDINGS: Liver: Diffusely echogenic, suggesting fatty infiltration. Liver measures 16.8 cm. No intrahepatic biliary ductal dilatation. Hepatic and portal veins are patent. Gallbladder: Within normal limits. No gallbladder wall thickening or pericholecystic fluid. No evidence of cholelithiasis. Common bile duct: Mildly dilated, 1.6 cm in diameter. Pancreas: Diffusely echogenic, likely reflecting fatty infiltration. No pancreatic duct dilatation. Demonstrates no hydronephrosis or echogenic calculi. Spleen measures 9.3 x 4.3 x 4.2 cm, within normal limits. Scattered granulomatous changes. Right kidney measures 9.5 x 4.7 x 4.0 cm and demonstrates no hydronephrosis or echogenic calculi. US/Abdomen Limited IMPRESSION: 1. Diffuse fatty infiltration of liver and pancreas. 2. Mildly dilated common bile duct. No significant intrahepatic biliary ductal dilatation. 3. Unremarkable appearance of the gallbladder. Reading Location: [id number]
--- NOTE | 2025-07-12 09:45 | CASEMGMT ---
Social Work SW assisted pt in completing Living Will and Health care POA naming his Melyssa. Copy placed on pt chart and originals given to pt. ALEKSANDAR Hughes
[2025-07-12] MEDS: Cholecalciferol (VIT D3) 25 MCG TABLET (1,000 UNITS) PO (10:02)
[2025-07-12] MEDS: Thiamine Hydrochloride 100 MG Tablet PO (10:02)
[2025-07-12] MEDS: FLU VACCINE 2025-26(6MOS UP) 45 MCG/0.5 ML SYRINGE IM (10:09)
[2025-07-12] MEDS: 0.9% Saline Lock 10 ML Syringe IV (10:12)
[2025-07-12 10:15] LABS: Hemoglobin 8.1 g/dL (13.0-16.5)
--- NOTE | 2025-07-12 11:01 | CASEMGMT ---
Addendum entered by Ashley Rodriguez 07/12/25 11:08: Pt states he was independent at home and lives with his . Pt has no concern with returning home at time of discharge. PT denies any needs at discharge. ALEKSANDAR Hughes Original Note: Social Work SW spoke with pt regarding alcohol use. Pt states that he drinks vodka daily and has no desire to stop. Pt denies need for any resources or discussion about cessation. SW also addressed mental health as pt has a diagnosis of bipolar. Pt states he takes his medication but does not see a counselor nor a psychiatrist and pt adamantly declines need for resources regarding mental health. Pt denies any other SW needs. ALEKSANDAR Hughes
[2025-07-12] MEDS: Lactated Ringers 1,000 ML 100 ML IV (13:09)
[2025-07-12] MEDS: MELATONIN 3 MG TABLET PO (23:48)
[2025-07-13] VITALS (8 sets, daily range): BP systolic 98–130; BP diastolic 69–83; PULSE 67–82; RESP 17–20; TEMP 36.3–36.8; O2SAT 93–100
[2025-07-13 05:29] LABS: AST(SGOT) 73 U/L (<=37); Alanine Aminotransfer ALT/SGPT 50 U/L (<=46); Albumin, Serum 3.2 g/dL (3.4-4.8); Alkaline Phosphatase 160 U/L (40-129); Bilirubin, Direct 0.28 mg/dL (0.00-0.30); Globulin 2.2 g/dL (2.2-4.2)
[2025-07-13 08:03] LABS: Hematocrit 23.4 % (40-54); Hemoglobin 7.9 g/dL (13.0-16.5); Immature Granulocytes Count 0.100 X10^3/uL (0.0-0.0); Mean Corp Hgb Conc 33.8 g/dL (32-36); Mean Corpuscular Volume 104.9 fL (80-94); Mean Platelet Vol. 10.7 fl (6.2-12.0); NRBC Flagged by Analyzer 0 % (0-5); Platelet Count 179 K/mm3 (150-450); RBC Distribution Width CV 17.1 % (11.6-14.6); RBC Distribution Width SD 65.0 fl (35.1-43.9); Red Blood Count 2.23 M/mm3 (4.6-6.2); White Blood Count 3.7 K/mm3 (4.4-11.0)
[2025-07-13 08:16] LABS: Anion Gap 9 (5-15); BUN 15 mg/dL (4-19); BUN/Creat Ratio 12.1 RATIO (10-20); Calcium,Total 8.9 mg/dL (7.6-11.0); Carbon Dioxide 24.3 mmol/L (21.0-32.0); Chloride 104 mmol/L (98-108); Estimated Creatinine Clearance 57.56 ml/min (50-250); Glucose 113 mg/dL (70-99); Potassium 4.2 mmol/L (3.3-5.1)
[2025-07-13] MEDS: Thiamine Hydrochloride 100 MG Tablet PO (09:21)
[2025-07-13] MEDS: Cholecalciferol (VIT D3) 25 MCG TABLET (1,000 UNITS) PO (09:21)
--- NOTE | 2025-07-13 10:16 | PCM.PN.HOSP ---
Reason for Visit Chief Complaint: Shortness of breath and chest pain with exertion Objective Data Objective Data Vital Signs: Vital Signs Temp Pulse Resp BP Pulse Ox O2 Del Method 98.0 F 67 17 109/74 98 Room Air 07/13/25 09:18 07/13/25 09:18 07/13/25 09:18 07/13/25 09:18 07/13/25 09:18 07/13/25 09:18 Oxygen Delivery Method Room Air Weight: 168 lb 6.931 oz Body Mass Index (BMI) 26.4 Intake & Output: Intake and Output for Last 24 Hours 07/11/25 07/12/25 07/13/25 23:59 23:59 23:59 Intake Total 1903.33 / 1903.33 996.67 / 996.67 Balance 1903.33 / 1903.33 996.67 / 996.67 Lab / Micro Data 07/13/25 07:55 07/13/25 07:55 Labs: Laboratory Results - last 24 hr 07/13/25 03:55: Total Bilirubin 0.53, Direct Bilirubin 0.28, AST 73 H, ALT 50 H, Alkaline Phosphatase 160 H, Total Protein 5.4 L, Albumin 3.2 L, Globulin 2.2 07/13/25 07:55: WBC 3.7 L, RBC 2.23 L, Hgb 7.9 L, Hct 23.4 L, MCV 104.9 H, MCH 35.4 H, MCHC 33.8, RDW Std Deviation 65.0 H, RDW Coeff of Nadeem 17.1 H, Plt Count 179, MPV 10.7, Immature Gran % (Auto) 2.700 H, Neut % (Auto) 70.5 H, Lymph % (Auto) 17.5 L, [place] % (Auto) 8.2, Eos % (Auto) 0.0, Baso % (Auto) 1.1 H, Absolute Neuts (auto) 2.6, Absolute Lymphs (auto) 0.64 L, Nucleated RBC % 0, Sodium 137, Potassium 4.2, Chloride 104, Carbon Dioxide 24.3, Anion Gap 9, BUN 15, Creatinine 1.26 H, Estim Creat Clear Calc 57.56, Est GFR (MDRD) Non-Af 65, BUN/Creatinine Ratio 12.1, Glucose 113 H, Calcium 8.9 Micro: Microbiology 07/12/25 14:13 Stool Stool Occult Blood (PABLITO) - Final Radiography Diagnostic Testing: Radiology Impression Echocardiogram 07/11/25 18:52 Interpretation Summary Mild concentric left ventricular hypertrophy. The left ventricular ejection fraction is 65 %. Stage 1 diastolic dysfunction. Ordering Physician: Luis Rivera Performed By: Anatoly Solo RCS Abdomen Ultrasound 07/12/25 07:18 IMPRESSION: 1. Diffuse fatty infiltration of liver and pancreas. 2. Mildly dilated common bile duct. No significant intrahepatic biliary ductal dilatation. 3. Unremarkable appearance of the gallbladder. Reading Location: [facility] Physical Exam Narrative Seen and examined. Patient denies any acute issues over night. No chest pain. No shortness of breath at rest but he states he gets on exertion, PHIPPS, was admitted with dyspnea on minimal exertion and chest tightness mainly anterior and posterior side without radiation. Denies leg edema or abdominal swelling. Patient has history of chronic alcohol use. Drinks 1 L of vodka in 1 week[address] Drives heavy from Monday to Monday. Has been drinking for a long time since early age. He used to smoke cigarettes and teenager and then started smoking marijuana and chews tobacco. Physical exam General: Alert, Oriented x3, Cooperative HEENT: Atraumatic, PERRLA, EOMI, Normocephalic. Oral: No Gingival or Mucosal Lesions/ Ulcerations Neck: Supple, No JVD, Negative Carotid Bruits Chest wall/Lungs: Air entry diminished in bilateral lung bases. No crepitation/rhonchi Cardiovascular: Regular rate and rhythm, Normal S1,S2, No M/G/R Abdomen: Bowel Sounds Present, Soft, Non Tender, Non-Distended. No hepatosplenomegaly. No palpable ascites : No dysuria. No renal angle tenderness. No suprapubic tenderness. Extremities: No edema, Capillary Refill Less than 3 Seconds Skin: No rashes, No breakdown Musculoskeletal: No Tenderness to Palpation of Joints or Extremities Neurological: Cranial nerves II-XII grossly intact, DTR 2+/4. No acute focal neurological deficit. Psych/Mental Status: Normal Affect, Appropriate. Assessment & Plan Assessment/Plan (1) Chest pain: PLAN: Plan Patient is a 59-year-old male who presented to [facility] ED on 07/11/2025 with shortness of breath and chest pain with exertion. The patient had significant chest pain and dyspnea with fairly minimal exertion in the ED. 1. Exertional chest pain and dyspnea ? Patient was admitted under observation status to PCU. Unclear etiology at this time. ED workup negative including chest x-ray normal, troponins negative x 3, EKG with normal sinus rhythm and no ST changes. Heart rate and blood pressure normal. No hypoxia or tachypnea. Anemia as below may be contributing but cannot rule out primary cardiac etiology. Echocardiogram and nuclear stress testing ordered. N.p.o. at midnight. A1c 5.7% and TSH normal. A.m. lipid profile 07/12: Stress test was postponed because of severe anemia 7.8 g%. Repeat H&H 8.1. Stool for occult blood ordered. Lipid profile shows LDL 76, total cholesterol 158 TG 193. TSH 0.918, free T4 and free T3 normal. A1c 5.7%. 2D echo reported EF 65%, stage I diastolic dysfunction, mild concentric LVH. Normal RV. 07/13: Discussed with branch assistant Dr. Fairchild and advised Lexiscan nuclear stress test tomorrow a.m. Chest pain was not typical of angina as it is bilateral, localized. 2. Macrocytic anemia, history of GERD with peptic ulcer disease ? Hemoglobin 9.3, MCV 102 on admit. Baseline unclear but last hemoglobin was around 15 in 2021. Patient does report history of GERD with peptic ulcer disease over 10 years ago. On chart review, his hemoglobin was 10-11 back in 2013. Patient denies any dark or bloody stools. Ferritin very elevated at 1967 consistent with anemia of chronic disease; suspect alcoholic hepatitis is a strong contributor to this. 07/12: B12 462. Iron profile shows ferritin very high 1966 probably acute phase reactant, serum iron high TIBC iron saturation not reportable but unsaturated IBC low therefore seems unlikely iron deficiency anemia But probably inflammatory anemia from chronic alcohol use. Hemoglobin dropped from 9.3-7.8 latest 8.1. No recent hemoglobin but last was about 15.6 in May 2022 and 10.1-11 in 2013. Patient has severe chronic anemia but does not meet criteria for acute anemia. Continue home PPI 07/13:Hemoglobin did not improve but now 7.9. 1 unit of PRBC ordered as the patient gets dyspnea on exertion. His baseline hemoglobin about 15 g% in 2021. Stool for occult blood negative. 3. Elevated creatinine most likely VIVIANA on CKD stage IIIa ? Creatinine 1.65 on admit, BUN 24. Baseline unclear, last creatinine in 2021 was 1.4. Will give 1 L of IV fluids overnight given mild hyponatremia as below. BUN/creatinine 20/1.52. BUN/creatinine ratio 13.2. Slight improvement. Seems most likely chronic kidney disease, CKD stage III A. Continue 1 more liter of IV fluid. Hyponatremia improved. 07/13: Creatinine 1.26, shows improvement from admitting 1.65. Most likely patient has VIVIANA on CKD stage III 4. Mild hyponatremia ? Sodium 131, chloride 93 on admit. Suspect secondary to mild degree of dehydration. 07/12 serum sodium improved to 136. 5. Elevated transaminases most likely chronic alcoholic hepatitis 07/12:? AST 100, ALT 68, alk phos 218 on admit. No abdominal pain. On exam no ascites or splenomegaly. Repeat liver chemistry ordered. RUQ sonogram including spleen ordered. 07/13: Liver chemistry shows improvement in ALT, AST and ALP. TB normal. Right upper quadrant sonogram reported fatty diffuse liver with no significant intrahepatic bili ductal dilatation. Mildly dilated CBD 1.6 cm. Unremarkable appearance of GB. Patient does not have abdominal/RUQ pain, therefore CBD dilatation may be incidental finding probably from chronic alcohol use. 6. Chronic alcohol use and dependence: ? Patient reports he drinks 1 L of vodka in 1 week. He will drink this from Monday to Monday then have minimal alcohol again until the next Monday. Patient does report significant anxiety by or Monday but denies any tremors, delirium or hallucinations. Reports history of delirium tremens secondary to alcohol withdrawal in the hospital over 10 years ago. Last alcoholic drink was reportedly on Thursday 07/12. WA protocol with as needed Ativan ordered. Other as needed medications ordered per alcohol withdrawal order set. Monitor closely. 7. Hypertension ? Normotensive in the ED. Continue home amlodipine. Will hold home lisinopril and hydrochlorothiazide for now given elevated creatinine as above. 8. Bipolar disorder ? Follows with outpatient psychiatry. Continue home venlafaxine and Seroquel. DVT prophylaxis: Lovenox CODE STATUS: Full code, verified Microbiology Past 72 Hours 07/12/25 14:13 Stool Stool Occult Blood (PABLITO) - Final Laboratory Results 07/13/25 03:55: Total Bilirubin 0.53, Direct Bilirubin 0.28, AST 73 H, ALT 50 H, Alkaline Phosphatase 160 H, Total Protein 5.4 L, Albumin 3.2 L, Globulin 2.2 07/13/25 07:55: WBC 3.7 L, RBC 2.23 L, Hgb 7.9 L, Hct 23.4 L, MCV 104.9 H, MCH 35.4 H, MCHC 33.8, RDW Std Deviation 65.0 H, RDW Coeff of Nadeem 17.1 H, Plt Count 179, MPV 10.7, Immature Gran % (Auto) 2.700 H, Neut % (Auto) 70.5 H, Lymph % (Auto) 17.5 L, [place] % (Auto) 8.2, Eos % (Auto) 0.0, Baso % (Auto) 1.1 H, Absolute Neuts (auto) 2.6, Absolute Lymphs (auto) 0.64 L, Nucleated RBC % 0, Sodium 137, Potassium 4.2, Chloride 104, Carbon Dioxide 24.3, Anion Gap 9, BUN 15, Creatinine 1.26 H, Estim Creat Clear Calc 57.56, Est GFR (MDRD) Non-Af 65, BUN/Creatinine Ratio 12.1, Glucose 113 H, Calcium 8.9 07/11/25 14:55: Troponin T High Sens 13, NT pro BNP II 169, RBC Folate Hemolysate Pending, RBC Folate Pending, Hematocrit Pending, TSH 0.918, Free T4 1.20, Free T3 pg/dL 2.2 07/11/25 16:43: Troponin T Hi Sens 2 Hr 13 07/11/25 19:10: Iron 190 H, TIBC Not Reportable, Iron Saturation Not Reportable, Unsaturated IBC < 17 L, Ferritin 1967 H, Total Bilirubin 0.73, Direct Bilirubin 0.35 H, AST 100 H, ALT 68 H, Alkaline Phosphatase 218 H, Troponin T Hi Sens 4Hr 12, Total Protein 6.0, Albumin 3.6, Globulin 2.4 07/11/25 20:15: Vitamin B12 462 07/12/25 05:58: WBC 3.9 L, RBC 2.23 L, Hgb 7.8 L, Hct 22.7 L, MCV 101.8 H, MCH 35.0 H, MCHC 34.4, RDW Std Deviation 61.8 H, RDW Coeff of Nadeem 16.7 H, Plt Count 192, MPV 10.9, PT 13.9, INR 1.1, Sodium 136, Potassium 3.7, Chloride 101, Carbon Dioxide 23.9, Anion Gap 11, BUN 20 H, Creatinine 1.52 H, Estim Creat Clear Calc 47.71 L, Est GFR (MDRD) Non-Af 52 L, BUN/Creatinine Ratio 13.2, Glucose 99, Calcium 8.6, Triglycerides 193, Cholesterol 158, LDL Cholesterol, Calc 76, VLDL Cholesterol 39, HDL Cholesterol 43, Cholesterol/HDL Ratio 3.64 Clinical Impression(s) from Imaging Studies Chest X-Ray 07/11/25 15:15 IMPRESSION: Negative. Reading Location: [facility] Echocardiogram 07/11/25 18:52 Interpretation Summary Mild concentric left ventricular hypertrophy. The left ventricular ejection fraction is 65 %. Stage 1 diastolic dysfunction. Ordering Physician: Luis Rivera Performed By: Anatoly Solo RCS Abdomen Ultrasound 07/12/25 07:18 IMPRESSION: 1. Diffuse fatty infiltration of liver and pancreas. 2. Mildly dilated common bile duct. No significant intrahepatic biliary ductal dilatation. 3. Unremarkable appearance of the gallbladder. Reading Location: [facility] Charges/Coding Visit Charges Inpatient E&M: 65474 Subs Hosp L2
[2025-07-13] MEDS: 0.9% Normal Saline (500mL Bag) 500 ML 150 ML IV (15:15)
[2025-07-13] MEDS: 0.9% Saline Lock 10 ML Syringe IV ×2 (15:45→21:00)
--- NOTE | 2025-07-13 20:13 | EKG12_ITS ---
Test Reason : CP Blood Pressure : */* mmHG Vent. Rate : 74 BPM Atrial Rate : 74 BPM P-R Int : 156 ms QRS Dur : 94 ms QT Int : 352 ms P-R-T Axes : 32 4 30 degrees QTcB Int : 390 ms Normal sinus rhythm Low voltage QRS Borderline ECG When compared with ECG of 11-Jul-2025 20:10, MANUAL COMPARISON REQUIRED DATA IS UNCONFIRMED Confirmed by ESTHELA BARBER, NEVA ([id number]), school photograph editor CHUCK LY ([id number]) on 07/15/2025 7:52:27 AM Referred By: DR Jarrett Confirmed By: NEVA PROCTOR MD
[2025-07-13 21:29] LABS: Troponin T High Sensitivity 11 ng/L (<=22)
[2025-07-13 23:13] LABS: Troponin T High Sens 2 HR 11 ng/L (<=22)
[2025-07-14 01:16] LABS: Troponin T High Sens 4 HR 11 ng/L (<=22)
[2025-07-14 02:18] VITALS: BP 120/75; PULSE 82; RESP 16; TEMP 36.8; O2SAT 100
[2025-07-14 05:49] LABS: Hematocrit 26.1 % (40-54); Hemoglobin 8.9 g/dL (13.0-16.5); Immature Granulocytes Count 0.200 X10^3/uL (0.0-0.0); Mean Corp Hgb Conc 34.1 g/dL (32-36); Mean Corpuscular Volume 99.2 fL (80-94); Mean Platelet Vol. 10.7 fl (6.2-12.0); NRBC Flagged by Analyzer 1.3 % (0-5); POSITIVE MORPHOLOGY YES; Platelet Count 183 K/mm3 (150-450); RBC Distribution Width CV 22.7 % (11.6-14.6); RBC Distribution Width SD 81.0 fl (35.1-43.9); Red Blood Count 2.63 M/mm3 (4.6-6.2); White Blood Count 6.0 K/mm3 (4.4-11.0)
--- NOTE | 2025-07-14 05:55 | EKG12_ITS ---
Test Reason : AM EKG Blood Pressure : */* mmHG Vent. Rate : 75 BPM Atrial Rate : 75 BPM P-R Int : 170 ms QRS Dur : 92 ms QT Int : 364 ms P-R-T Axes : 60 21 50 degrees QTcB Int : 406 ms Normal sinus rhythm Low voltage QRS Borderline ECG When compared with ECG of 13-Jul-2025 20:11, MANUAL COMPARISON REQUIRED DATA IS UNCONFIRMED Confirmed by ESTHELA BARBER, NEVA ([id number]), deputy editor in chief CHUCK LY ([id number]) on 07/15/2025 7:52:05 AM Referred By: Confirmed By: NEVA PROCTOR MD
[2025-07-14 06:16] LABS: AST(SGOT) 55 U/L (<=37); Alanine Aminotransfer ALT/SGPT 41 U/L (<=46); Albumin, Serum 3.3 g/dL (3.4-4.8); Alkaline Phosphatase 148 U/L (40-129); Anion Gap 8 (5-15); BUN 17 mg/dL (4-19); BUN/Creat Ratio 13.9 RATIO (10-20); Bilirubin, Direct 0.29 mg/dL (0.00-0.30); Calcium,Total 9.1 mg/dL (7.6-11.0); Carbon Dioxide 25.6 mmol/L (21.0-32.0); Chloride 101 mmol/L (98-108); Estimated Creatinine Clearance 58.02 ml/min (50-250); Globulin 2.3 g/dL (2.2-4.2); Glucose 104 mg/dL (70-99); Potassium 4.4 mmol/L (3.3-5.1)
[2025-07-14 06:20] LABS: Differential Indicated SCAN CRITERIA MET
[2025-07-14 06:25] VITALS: BP 122/80; PULSE 69; RESP 16; TEMP 36.7; O2SAT 98
[2025-07-14 06:39] VITALS: O2SAT 93
[2025-07-14 06:56] LABS: Anisocytosis 2+; Differential Comment SCANNED
[2025-07-14 09:52] VITALS: BP 115/78; PULSE 77; RESP 18; TEMP 36.7; O2SAT 98
[2025-07-14] MEDS: Thiamine Hydrochloride 100 MG Tablet PO (09:59)
[2025-07-14] MEDS: Cholecalciferol (VIT D3) 25 MCG TABLET (1,000 UNITS) PO (09:59)
--- NOTE | 2025-07-14 11:07 | STRESSREP ---
Stress Test Report Pharmacologic myocardial perfusion stress test. 59-year-old man with a history of chest pain. Resting EKG demonstrates normal sinus rhythm with a rate of 73 bpm. Resting blood pressure is 126/72 mmHg. 0.4 mg of regadenoson was infused per usual protocol followed by rapid intravenous saline flush injection. Continuous EKG monitoring was performed. The maximum heart rate was 111 bpm which was 69% of max impacted heart rate the maximum workload was 1 metabolic equivalent. At rest there were no ST or T wave changes noted to suggest ischemia and at peak infusion nonspecific ST changes were noted which did not meet the criteria for ischemia. No clinical angina is noted. The final blood pressure was 114/60 mmHg. Myocardial perfusion protocol. 12 mCi of technetium 99m sestamibi was injected at rest. 0.4 mg of regadenoson was infused per usual protocol. At peak infusion 34.1 mCi of technetium 99m sestamibi was injected stress images were obtained stress and rest images were reconstructed and compared in the short axis vertical long and horizontal long axis. Gated images were also obtained. Perfusion SPECT analysis: Review of the stress images demonstrate normal uptake of tracer noted in all areas of the myocardium. The resting images similar demonstrated normal uptake of tracer noted in all areas of the myocardium. No areas of reversibility are noted to suggest ischemia and no previous infarct is noted. Gated SPECT analysis: The gated ejection fraction is 83%. Conclusion: Normal pharmacologic myocardial perfusion stress test. Preserved ejection fraction.
--- NOTE | 2025-07-14 12:03 | CASEMGMT ---
Social Work SW spoke with the patient and he reported he does not a referral for home health. He reported he does not want any services or DME. DELBERT Devine
[2025-07-14 13:30] VITALS: O2SAT 100; O2SAT 98
[2025-07-14 14:49] VITALS: BP 115/98; PULSE 78; RESP 18; TEMP 36.8; O2SAT 100
--- NOTE | 2025-07-14 16:24 | DCINST_ITS ---
Discharge Instructions DC O2, CPAP, BIPAP needs Home O2 Discharge instructions: No Dressing / Incision Discharge Activity: Return to Normal Activity Follow Up Care Test Results: Test results from this visit will be discussed in further detail at your follow- up appointment, if applicable. Discharge Plan Admission Admit Date/Time: 07/12/25 18:14 Primary Reason for Your Visit: Anemia, shortness of breath Attending Provider: Kyle Meza Primary Care Provider: Care Physician,No Primary Consulting Providers: Luis Rivera; Christian Wright Instructions Additional Instructions / Restrictions: Reduce/stop alcohol intake Discharge Orders/Prescriptions Prescriptions: Continued Therems-M 1 TABLET tablet 1 tab PO DAILYCM Qty: 30 0RF Patient Comments: Multivitamin benzonatate 100 mg capsule 100 mg PO TID PRN PRN (Reason: cough) albuterol sulfate 90 mcg/actuation HFA aerosol inhaler 2 puff inhalation Q4H PRN PRN (Reason: wheezing) omeprazole 40 mg capsule,delayed release(DR/EC) 40 mg PO DAILY cholecalciferol (vitamin D3) 25 mcg (1,000 unit) tablet 25 mcg PO DAILY venlafaxine 75 mg capsule,extended release 24hr 75 mg PO DAILY venlafaxine 150 mg capsule,extended release 24hr 150 mg PO DAILY quetiapine 100 mg tablet 100 mg PO QHS lisinopril 10 mg tablet 10 mg PO DAILY amlodipine 5 mg tablet 5 mg PO DAILY hydrochlorothiazide 25 mg tablet 25 mg PO DAILY Referrals / Follow Up: [facility] [Provider Group] - Within 2 Weeks Referral Note: Call clinic to arrange to be seen within the next 2 weeks, you will need your blood count repeated, your kidney functions repeated, and a workup for liver disease Nereyda Coronel MD [Med Staff - Community Service Technician, Internal Medicine] Care Physician,No Primary [Primary Care Provider, Medical] Disposition Disposition (needs filled in before D/C Order can be placed): Home, Self Care
--- NOTE | 2025-07-14 16:29 | DS.PCM_ITS ---
Providers Date of Admission: 07/12/25 Date of Discharge: 07/14/25 Primary Care Physician: Marizol Primary Care Phys Reason For Visit: EXERTIONAL CHEST PAIN, ANEMIA, ALCOHOL ABUSE Diagnosis Discharge Diagnosis (1) Chest pain: Status: Acute Code(s): R07.9 - Chest pain, unspecified Plan 1. Chest pain-musculoskeletal in nature #2 dyspnea-secondary to anemia #3 chronic anemia-etiology unclear #4 essential hypertension #5 bipolar disorde #6 r Medications at Discharge Home Medications albuterol sulfate 90 mcg/actuation aerosol inhaler 2 puff inhalation Q4H PRN PRN wheezing 07/11/25 amlodipine 5 mg tablet 5 mg PO DAILY blood pressure 07/11/25 benzonatate 100 mg capsule 100 mg PO TID PRN PRN cough 07/11/25 cholecalciferol (vitamin D3) 25 mcg (1,000 unit) tablet 25 mcg PO DAILY vitamin 07/11/25 hydrochlorothiazide 25 mg tablet 25 mg PO DAILY diuretic 07/11/25 lisinopril 10 mg tablet 10 mg PO DAILY blood pressure 07/11/25 omeprazole 40 mg capsule,delayed release 40 mg PO DAILY reflux 07/11/25 quetiapine 100 mg tablet 100 mg PO QHS mental health 07/11/25 venlafaxine 150 mg capsule,extended release 24 hr 150 mg PO DAILY mental health 07/11/25 venlafaxine 75 mg capsule,extended release 24 hr 75 mg PO DAILY mental health 07/11/25 multivitamin,np-melc-njzfzzfi 27 mg-0.4 mg tablet 1 tab PO DAILYCM vitamin 07/14/25 Hospital Course Operations None Procedures 2-D Echocardiogram, Blood transfusion and Nuclear stress test Summary of Care Provided Minutes Spent on Discharge: 31 Hospital Course: This 59-year-old white male was seen in the emergency room at [facility] with complaints of shortness of breath. Patient stated that shortness of breath has been going on for several years but he has not sought medical attention. Patient also states that he has has chest discomfort with exertion. Workup in the emergency room showed the patient to be in sinus rhythm and stable on room air at rest. Chest x-ray was unremarkable, CBC revealed a hemoglobin of 9.3, creatinine was elevated at 1.65 and BUN was 24. Troponins were normal x 3, patient was ambulated in the emergency room and had severe shortness of breath and chest discomfort and therefore was admitted to PCU. Patient's hemoglobin ultimately dropped to 7.8 and he was transfused 1 unit of packed red blood cells. Patient underwent an echocardiogram which was unremarkable. Finally, patient underwent a pharmacological nuclear stress test which did not show evidence of reversible ischemia. On 07/14/2025, patient was seen and examined: On examination he appeared in good health and spirits. Vital signs as documented. Skin warm and dry and without overt rashes. Neck without JVD, neck was supple, trachea midline, thyroid was normal. Lungs clear bilaterally, normal air movement was noted. Heart exam notable for regular rhythm, normal sounds and absence of murmurs, rubs or gallops. Abdomen unremarkable and without evidence of organomegaly, masses, or abdominal aortic enlargement. Bowel sounds are present, abdomen is not distended. Extremities nonedematous, no cyanosis was noted, no clubbing was noted. Neuro: Cranial nerves II through XII are grossly intact, no focal motor deficits were noted, sensation to light touch and pinprick intact, motor exam 5/5 throughout. Psych: Patient is alert and oriented x3, he does not appear anxious or depressed, he does not appear agitated. Patient was discharged to home in stable condition on 07/14/2025 Weight / BMI Weight Weight: 76.4 kg Body Mass Index (BMI) 26.4 ABG / Lab / Microbiology Data 07/14/25 04:48 07/14/25 04:48 Laboratory: Laboratory Results - last 24 hr 07/13/25 20:47: Troponin T High Sens 11 D 07/13/25 22:47: Troponin T Hi Sens 2 Hr 11 07/14/25 00:51: Troponin T Hi Sens 4Hr 11 07/14/25 04:48: WBC 6.0, RBC 2.63 L, Hgb 8.9 L, Hct 26.1 L, MCV 99.2 H D, MCH 33.8 H, MCHC 34.1, RDW Std Deviation 81.0 H, RDW Coeff of Nadeem 22.7 H, Plt Count 183, MPV 10.7, Immature Gran % (Auto) 3.400 H, Neut % (Auto) 70.6 H, Lymph % (Auto) 16.9 L, [place] % (Auto) 7.9, Eos % (Auto) 0.0, Baso % (Auto) 1.2 H, Absolute Neuts (auto) 4.2, Absolute Lymphs (auto) 1.01, Nucleated RBC % 1.3, Differential Comment SCANNED, Anisocytosis 2+, Sodium 135, Potassium 4.4, Chloride 101, Carbon Dioxide 25.6, Anion Gap 8, BUN 17, Creatinine 1.25 H, Estim Creat Clear Calc 58.02, Est GFR (MDRD) Non-Af 66, BUN/Creatinine Ratio 13.9, G lucose 104 H, Calcium 9.1, Total Bilirubin 0.44, Direct Bilirubin 0.29, AST 55 H , ALT 41, Alkaline Phosphatase 148 H, Total Protein 5.6 L, Albumin 3.3 L, Globulin 2.3 Microbiology: Microbiology 07/12/25 14:13 Stool Stool Occult Blood (PABLITO) - Final D/C Instructions DC O2, CPAP, BIPAP Needs Home O2 Discharge instructions: No Meaningful Use Info Meaningful Use Meaningful Use Diagnoses (Choose all that apply): None applicable Discharge Plan Admission Admit Date/Time: 07/12/25 18:14 Primary Reason for Your Visit: Anemia, shortness of breath Attending Provider: Kyle Meza Primary Care Provider: Care Physician,No Primary Consulting Providers: Luis Rivera; Christian Wright Instructions Additional Instructions / Restrictions: Reduce/stop alcohol intake Discharge Orders/Prescriptions Prescriptions: Continued benzonatate 100 mg capsule 100 mg PO TID PRN PRN (Reason: cough) albuterol sulfate 90 mcg/actuation HFA aerosol inhaler 2 puff inhalation Q4H PRN PRN (Reason: wheezing) omeprazole 40 mg capsule,delayed release(DR/EC) 40 mg PO DAILY cholecalciferol (vitamin D3) 25 mcg (1,000 unit) tablet 25 mcg PO DAILY venlafaxine 75 mg capsule,extended release 24hr 75 mg PO DAILY venlafaxine 150 mg capsule,extended release 24hr 150 mg PO DAILY quetiapine 100 mg tablet 100 mg PO QHS lisinopril 10 mg tablet 10 mg PO DAILY amlodipine 5 mg tablet 5 mg PO DAILY hydrochlorothiazide 25 mg tablet 25 mg PO DAILY No Action Therems-M 1 TABLET tablet 1 tab PO DAILYCM Patient Comments: Multivitamin Referrals / Follow Up: [facility] [Provider Group] - Within 2 Weeks Referral Note: Call clinic to arrange to be seen within the next 2 weeks, you will need your blood count repeated, your kidney functions repeated, and a workup for liver disease Nereyda Coronel MD [Med Staff - Pole Peeling Machine Operator Helper, Internal Medicine] Care Physician,No Primary [Primary Care Provider, Medical] Disposition Disposition (needs filled in before D/C Order can be placed): Home, Self Care Charges/Coding Visit Charges Inpatient E&M: 45304 Disch Hosp >30min
[2025-07-15 15:08] LABS: Folate, Hemolysate Test 339.0 ng/mL (Not Estab.); Folate, RBC (Hct) Test 27.0 % (37.5-51.0); Folates, RBC Test 1256 ng/mL (>498)
== END 2025-07-14 18:23 | disposition home or self-care (01) | DRG 313 ==
LOC: ED 18:54 → PCU 19:00
PROVIDERS: Internal Medicine; Admitting Provider Hospitalist; Emergency Provider Emergency Medicine; Visit Provider Internal Medicine
DX: R07.9 Chest pain, unspecified (principal); N17.9 Acute kidney failure, unspecified; E87.1 Hypo-osmolality and hyponatremia; D63.8 Anemia in other chronic diseases classified elsewhere; K70.10 Alcoholic hepatitis without ascites; N18.31 Chronic kidney disease, stage 3a; F31.9 Bipolar disorder, unspecified; I12.9 Hypertensive chronic kidney disease with stage 1 through stage 4 chronic kidney disease, or unspecified chronic kidney disease; F10.10 Alcohol abuse, uncomplicated; D53.9 Nutritional anemia, unspecified; K76.0 Fatty (change of) liver, not elsewhere classified; K21.9 Gastro-esophageal reflux disease without esophagitis; F17.220 Nicotine dependence, chewing tobacco, uncomplicated; F12.90 Cannabis use, unspecified, uncomplicated; Y90.9 Presence of alcohol in blood, level not specified
CPT/HCPCS: 36415; 71046; 76705; 78452; 80048; 80061; 80076; 82274; 82607; 82728; 82747; 83036; 83540; 83550; 83880; 84439; 84443; 84481; 84484; 85014; 85018; 85025; 85027; 85379; 85610; 86644; 86850; 86900; 86901; 93005; 93017; 93306; 94760; 99285; 99406; A9500; P9016; A4216; J2785

== ENCOUNTER → 2025-07-16 | Outpatient (CLI) | payer MEDICARE, SELFPAY ==
[2025-07-16 12:19] LABS: Hematocrit 29.6 % (40-54); Hemoglobin 9.7 g/dL (13.0-16.5); Immature Granulocytes Count 0.300 X10^3/uL (0.0-0.0); Mean Corp Hgb Conc 32.8 g/dL (32-36); Mean Corpuscular Volume 101.7 fL (80-94); Mean Platelet Vol. 11.0 fl (6.2-12.0); NRBC Flagged by Analyzer 0 % (0-5); POSITIVE MORPHOLOGY YES; Platelet Count 238 K/mm3 (150-450); RBC Distribution Width CV 21.8 % (11.6-14.6); RBC Distribution Width SD 82.0 fl (35.1-43.9); Red Blood Count 2.91 M/mm3 (4.6-6.2); White Blood Count 6.5 K/mm3 (4.4-11.0)
[2025-07-16 12:20] LABS: Differential Indicated SCAN CRITERIA MET
[2025-07-16 12:58] LABS: Anisocytosis 1+
[2025-07-16 13:11] LABS: AST(SGOT) 45 U/L (<=37); Alanine Aminotransfer ALT/SGPT 37 U/L (<=46); Albumin, Serum 3.8 g/dL (3.4-4.8); Alkaline Phosphatase 134 U/L (40-129); Anion Gap 11 (5-15); BUN 24 mg/dL (4-19); BUN/Creat Ratio 19.8 RATIO (10-20); Calcium,Total 9.2 mg/dL (7.6-11.0); Carbon Dioxide 25.2 mmol/L (21.0-32.0); Chloride 102 mmol/L (98-108); Cholesterol 168 mg/dL (<=200); Ferritin 1042 ng/mL (37-417); Globulin 2.7 g/dL (2.2-4.2); Glucose 96 mg/dL (70-99); Low Density Lipoprotein Calc. 84 mg/dL; Potassium 3.9 mmol/L (3.3-5.1); Triglycerides 130 mg/dL; Very Low Density Lipoprotein 26 mg/dL (5-40); Vitamin B12 302 pg/mL (180-914); cholesterol:hdl ratio screen 2.88
[2025-07-16 13:18] LABS: FOLATES,SERUM (FOLIC ACID) 7.58 ng/mL (4.60-34.80)
[2025-07-16 13:56] LABS: Iron 82 ug/dL (65-175); Iron Binding Capacity,Total 249 ug/dL (250-450); Iron Binding Capacity,Unsat 167 ug/dL (228-428)
[2025-07-17 04:07] LABS: GGTP 796 IU/L (0-65)
== END | disposition home or self-care (01) ==
LOC: VSLAB 09:13
PROVIDERS: PCP Nurse Practitioner Family; Visit Provider Nurse Practitioner Family
DX: Z13.220 Encounter for screening for lipoid disorders (principal); Z13.1 Encounter for screening for diabetes mellitus; R74.8 Abnormal levels of other serum enzymes; D64.9 Anemia, unspecified; R73.09 Other abnormal glucose
CPT/HCPCS: 36415; 80053; 80061; 82607; 82728; 82746; 82977; 83036; 83540; 83550; 85025